=== PATIENT | male | born 1965 | race Caucasian/White ===

== ENCOUNTER 2022-05-13 18:16 | Emergency (ER) | payer BC, MEDICAID, SELFPAY ==
[2022-05-13 18:17] VITALS: BP 121/83; PULSE 84; RESP 14; TEMP 37.1; O2SAT 100; BMI 24.2
--- NOTE | 2022-05-13 18:55 | RAD_ITS ---
STUDY: X-RAY - UNILATERAL RIBS ( RIGHT ) WITH CHEST REASON FOR EXAM: Male, 57 years old. injury TECHNIQUE - RIBS: 4 view(s) of the ribs. TECHNIQUE - CHEST: Single PA view of the chest. COMPARISON: None. FINDINGS - RIBS: Subtle acute nondisplaced fracture the lateral right fifth rib. FINDINGS - CHEST: The lungs are clear and expanded. There is no demonstrated pleural abnormality. Normal size heart. Normal mediastinum and gómez. Normal visualized pulmonary arteries. Normal visualized aortic arch and descending thoracic aorta. Normal visualized thoracic spine. Normal visualized ribs, clavicles, and shoulders. There is no demonstrated abnormality of the visualized soft tissue structures of the upper abdomen. RAD/Ribs Uni Min 3V w/PA Chest IMPRESSION: RIBS: Subtle acute nondisplaced fracture the lateral right fifth rib. CHEST: No pneumothorax or hemothorax. Electronically Signed: Shay Haines MD at 19:08 EDT ,
--- NOTE | 2022-05-13 19:31 | EDS_ITS ---
HPI History of Present Illness Chief Complaint: Other, Pain/Inj Informant: patient Narrative Narrative: 57-year-old male states that he was walking down the sidewalk approximately 1 week ago when he tripped over a elevated aspect of the concrete and landed on his bottle injuring his right ribs. He notes a point very specifically just lateral to his breast that is painful. He is felt a popping sensation. He notes no cough or hemoptysis. She denies any other injuries. PFSH PFSH Medical History no medical history Allergy/AdvReac Type Severity Reaction Status Date / Time No Known Allergies Allergy Verified 05/13/22 18:17 Social History (Updated 05/13/22 @ 19:[address] Rogerio Gonzales, DO) current gender identity: male Smoking Status: Never smoker ROS ROS ED Constitutional Constitutional ED: Denies chills or weight loss Eyes Eyes: Denies change in vision or diplopia ENT ENT ED: Denies ear pain, rhinorrhea or sore throat Cardiovascular Cardiovascular: Reports chest pain; Denies orthopnea, palpitations or racing heartbeat Respiratory/Chest Respiratory/Chest: Denies cough, dyspnea or orthopnea Gastrointestinal Gastrointestinal: Denies abdominal pain, diarrhea, nausea or vomiting Genitourinary Genitourinary ED: Denies dysuria, hematuria or urinary frequency Musculoskeletal Musculoskeletal: Denies arthralgias or myalgias Integumentary Denies abscess or rash Neurologic Neurologic: Denies headache(s) or weakness Psychiatric Psychiatric: Denies anxiety, depression, suicidal ideation or suicidal thoughts Endocrine Endocrinology: Denies polydipsia, polyphagia or polyuria Allergic/Immunologic Allergic/Immunologic ED: Denies mouth swelling, tongue swelling or urticaria EXAM Physical Exam Const Vital Signs: 05/13/22 18:17 05/13/22 18:57 Temperature 98.7 F Temperature Source Temporal Pulse Rate 84 Respiratory Rate 14 Respiratory Effort Normal Non-Labored Respiratory Pattern Normal Blood Pressure 121/83 H Blood Pressure Mean 95 Pulse Ox 100 Oxygen Delivery Method Room Air Positive well nourished and well developed General Appearance ED: well developed HEENT Reports normocephalic, head/scalp atraumatic and moist mucous membranes Eyes PERRL and EOMs intact bilaterally Neck no lymphadenopathy, supple and no JVD Chest Wall Chest Narrative: There is an area of point tenderness just to the right of his right breast that is significantly tender to palpation. I do not appreciate any crepitance. Resp normal respiratory effort and clear to auscultation bilaterally Cardio regular rate, regular rhythm and no murmurs GI normal to inspection, nondistended, normoactive bowel sounds and non-tender Palpation: soft Back/Spine no CVA tenderness and normal ROM Extremity normal to inspection General Extremety ED: Negative for edema General Extremity: Negative for edema Neuro oriented x3 and CN's II-XII intact bilaterally Sensorium / Orientation: alert Motor Exam: strength 5/5 throughout Psych mental status grossly normal Mood & Affect: Negative for depressed or tearful Skin no rashes or lesions noted and no wounds MDM MDM MDM Narrative Medical decision making narrative: My interpretation of the plain films of the ribs is a nondisplaced fracture of the lateral fifth rib. I do not appreciate pulmonary contusion or pneumoh emothorax. Patient declines pain medication. This point he will be discharged home return if worsening or concerns Radiography Diagnostic Testing: Clinical Impression(s) from Imaging Studies Ribs w/Chest X-Ray 05/13/22 18:55 IMPRESSION: RIBS: Subtle acute nondisplaced fracture the lateral right fifth rib. CHEST: No pneumothorax or hemothorax. Electronically Signed: Shay Haines MD at 19:08 EDT , Discharge Plan Triage Chief Complaint: Other, Pain/Inj ED Provider: Rogerio Gonzales Dx/Rx/DC Orders Primary Care Provider: Care Physician,No Primary Referrals: Care Physician,No Primary [Primary Care Provider] -
[2022-05-13 19:40] VITALS: BP 118/69; PULSE 77; RESP 18; O2SAT 100
== END 2022-05-13 19:41 | disposition home or self-care (01) ==
PROVIDERS: Emergency Provider Emergency Medicine; Visit Provider Emergency Medicine
DX: S22.31XA Fracture of one rib, right side, initial encounter for closed fracture (principal); W18.09XA Striking against other object with subsequent fall, initial encounter; Y93.01 Activity, walking, marching and hiking; Y99.8 Other external cause status; Y92.480 Sidewalk as the place of occurrence of the external cause
CPT/HCPCS: 71101; 99282

== ENCOUNTER 2022-06-05 18:00 | Emergency (ER) | payer BC, SELFPAY ==
[2022-06-05 18:12] VITALS: BP 104/73; PULSE 82; RESP 16; TEMP 36.7; O2SAT 99; BMI 22.3
--- NOTE | 2022-06-05 18:45 | RAD_ITS ---
STUDY: X-RAY - RIGHT KNEE REASON FOR EXAM: Male, 57 years old. Fell on ice Sunday morning. Twisted knee. Pain. TECHNIQUE: 4 view(s) of the knee. COMPARISON: None. FINDINGS: Normal visualized distal femur. Normal visualized proximal tibia and fibula. Normal proximal tibiofibular articulation. There is no acute fracture, dislocation or destructive osseous pathology. There is moderate degenerative arthrosis of the medial femorotibial compartment with moderate joint space narrowing. Normal lateral femorotibial compartment. Normal patellofemoral articulation. There is a soft tissue prominence in the suprapatellar region suggesting a small volume joint effusion. There are atherosclerotic calcifications. RAD/Knee 4 or More Views IMPRESSION: 1. Suprapatellar joint effusion without acute fracture or subluxation. 2. Mild arthrosis of the knee. Electronically Signed: Samuel Pinon DO at 18:54 EST Reading Location ID and State: [address] [facility] Tel [phone], Service support ,
[2022-06-05 20:20] VITALS: BP 134/78; PULSE 68; RESP 16; TEMP 36.3; O2SAT 97
--- NOTE | 2022-06-05 20:55 | EDS_ITS ---
HPI History of Present Illness Chief Complaint: Lower Extremity Injury Narrative Narrative: 57-year-old male who denies significant past medical history presents with injury to his right knee that he sustained a day or 2 ago. He states that he was walking and twisted his right knee. He did not fall. He now has pain with weightbearing and leading with his right leg up stairs. It is on both sides of his knee and worse with movement. He denies any chest pain or shortness of breath, no other injury. No overt swelling. PFSH PFSH Allergy/AdvReac Type Severity Reaction Status Date / Time No Known Allergies Allergy Verified 06/05/22 18:12 Social History Smoking Status: Never smoker ROS ROS ED ROS Narrative Constitutional: No fever, no chills. HEENT: No sore throat. No neck pain. No loss of vision. No rhinorrhea. Cardiovascular: No chest pain. No palpitations. No pedal edema. Respiratory: No cough, no shortness of breath. Abdominal: No abdominal pain. No nausea. No vomiting. Genitourinary: No dysuria. No hematuria. Musculoskeletal: No myalgias. Right knee pain worse with weightbearing, flexion extension, and leading right leg upstairs. Neurologic: No headaches. No dizziness. No lightheadedness. Skin: No rash. No change in color. Psychiatric: No depression. No anxiety. EXAM Physical Exam Narrative Exam Narrative: Afebrile. Vital signs noted. HEENT: Normocephalic. Atraumatic. PERRL, EOMI. Neck soft and supple. No point tenderness or step off. Cardiovascular: Regular rate and rhythm. No murmurs, rubs, or gallops appreciated. Respiratory: No tachypnea. Lungs clear to auscultation bilaterally. Gastrointestinal: Abdomen soft, nontender, with normoactive bowel sounds. No rebound or guarding. Neurological: Awake. Alert. Nonfocal, nonlateralizing. Skin: No rash. Normal color. No pallor. Musculoskeletal: No pedal edema. Extension and flexion mechanisms of right knee intact. Able to lift leg off bed without difficulty. Full flexion of right knee limited secondary to pain. Mild tenderness along meniscal joint line. No overt swelling or erythema. Neurovascular intact distally with palpable dorsalis pedis pulse. Negative anterior drawer sign. Const Vital Signs: 06/05/22 18:12 06/05/22 20:20 Temperature 98.1 F 97.4 F L Temperature Source Temporal Temporal Pulse Rate 82 68 Respiratory Rate 16 16 Blood Pressure 104/73 134/78 H Blood Pressure Mean 83 96 Pulse Ox 99 97 Oxygen Delivery Method Room Air Room Air MDM MDM MDM Narrative Medical decision making narrative: X-rays were obtained of the right knee. There is a suprapatellar joint effusion but no evidence of fracture on my interpretation. He does have mild arthritis noted also. At this point in time he was given an Tobias wrap and will take [id number] analgesics as necessary. 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 He will buy an [id number] knee sleeve as needed for support. He will follow-up with his primary care provider or orthopedics in a week to 10 days if his pain does not improve. I feel he can be discharged safely home with follow-up. Return instructions were reviewed. Disposition is discharged home in stable condition. Radiography Diagnostic Testing: Clinical Impression(s) from Imaging Studies Knee X-Ray 06/05/22 18:45 IMPRESSION: 1. Suprapatellar joint effusion without acute fracture or subluxation. 2. Mild arthrosis of the knee. Electronically Signed: Samuel Pinon at 18:54 EST Reading Location ID and State: [address] [place] [address] Tel [phone], Service support , Discharge Plan Triage Chief Complaint: Lower Extremity Injury ED Provider: Rocco Simmons Dx/Rx/DC Orders Clinical Impression: Right knee sprain, Suprapatellar effusion of knee Instructions: ED Knee Effusion, ED Knee Sprain Stand Alone Forms: ED Work / School Excuse Primary Care Provider: Care Physician,No Primary Referrals: London Don MD [Med Staff - Active Staff] - 1 Week if not improving Care Physician,No Primary [Primary Care Provider] - Disposition Disposition: Home, Self Care
[2022-06-05 21:02] VITALS: BP 132/78; PULSE 78; RESP 16; TEMP 36.6; O2SAT 99
== END 2022-06-05 21:03 | disposition home or self-care (01) ==
PROVIDERS: Emergency Provider Emergency Medicine; Visit Provider Emergency Medicine
DX: S83.91XA Sprain of unspecified site of right knee, initial encounter (principal); Y99.8 Other external cause status; X50.1XXA Overexertion from prolonged static or awkward postures, initial encounter; M25.461 Effusion, right knee
CPT/HCPCS: 73564; 99282

== ENCOUNTER 2023-06-23 12:50 | Inpatient (IN) | payer MEDICAID, SELFPAY ==
[2023-06-23] VITALS (10 sets, daily range): BP systolic 87–106; BP diastolic 63–80; PULSE 65–101; RESP 12–22; TEMP 36.2–37.2; O2SAT 94–100; BMI 25.7; BMI 18.6
--- NOTE | 2023-06-23 12:59 | EKG12_ITS ---
Test Reason : Blood Pressure : / mmHG Vent. Rate : 093 BPM Atrial Rate : 093 BPM P-R Int : 130 ms QRS Dur : 084 ms QT Int : 310 ms P-R-T Axes : 068 054 062 degrees QTc Int : 385 ms Normal sinus rhythm Nonspecific T wave abnormality Abnormal ECG Confirmed by JOHNNA TORIBIO, RADHA ([id number]), acquisitions editor LEELA SHEPARD ([id number]) on 06/26/2023 6:20:05 AM Referred By: Confirmed By:ROWENA OROPEZA MD
--- NOTE | 2023-06-23 12:59 | RAD_ITS ---
STUDY: X-RAY CHEST REASON FOR EXAM: Male, 58 years old. Cough, shortness of breath TECHNIQUE: Single AP portable view of the chest. COMPARISON: 05/13/2022 FINDINGS: EKG leads overlie the chest Lungs are expanded, right lung is clear there is superimposed infiltrate in the lingula with associated effusion. Follow-up recommended to ensure resolution Normal size heart. Normal mediastinum and gómez. Normal visualized pulmonary arteries. Normal visualized aortic arch and descending thoracic aorta. There are diffuse degenerative changes of the visualized thoracic spine. Normal visualized ribs, clavicles, and shoulders. There is no demonstrated abnormality of the visualized soft tissue structures of the upper abdomen. RAD/Chest 1 View (Portable) IMPRESSION: Lingular infiltrate with likely atelectasis and effusion. Follow-up recommended to ensure complete resolution Electronically Signed: Darrian Dockery MD at 14:18 EST ,
--- NOTE | 2023-06-23 13:00 | EX.ED.DYSGE1 ---
HPI History of Present Illness Chief Complaint: Shortness of Breath Detail of Chief Complaint: Shortness of breath, cough and low blood pressure Informant: patient Onset/Context/Timing Onset: Yesterday Context: Gradual Onset Timing: Continuous Quality: Dyspnea, dyspnea on exertion and lightheadedness Location: Respiratory and cardiovascular Current Severity: Mild Maximum Severity: Moderate Worsened by: Lightheadedness is worse when he stands shortness of breath is worse with a Relieved by: Nothing Associated Symptoms Associated Symptoms: Productive cough of white-colored sputum Narrative Narrative: Patient is a 58-year-old male with stage IV lung cancer who is seen by Dr. Peterson at [facility]. He received chemo on Sunday. He complains of chills. He denies fever. He does have a cough productive of white-colored sputum. He complains of shortness of breath and lightheadedness. States his blood pressure is normally 110s to 120 systolic. He denies nausea or vomiting or diarrhea. His stool is dark but not black or sticky. He denies dysuria, frequency, urgency or hematuria. He denies change in color of his urine. Patient complains of generalized weakness. He denies paresthesia or anesthesia. He denies problems with balance. He denies headache. He denies visual disturbance. Prior similar symptoms: No Recent Illness/Hospitalization: Yes (Chemotherapy on Sunday) [facility] Medical History (Updated 06/23/23 @ 15:[address] Joselito Mathias MD) Stage 4 lung cancer Allergy/AdvReac Type Severity Reaction Status Date / Time No Known Allergies Allergy Verified 06/23/23 12:51 Family History (Updated 06/23/23 @ 16:[address] Isacc Barrientos MD) Other Cancer Surgical History no surgical history Social History (Updated 06/23/23 @ 13:[address] Joselito Mathias MD) household members: none Smoking Status: Current every day smoker tobacco type: cigarettes substance use type: does not use ROS ROS ED Constitutional Constitutional ED: Reports chills and weight loss; Denies fever(s), subjective or sweats Eyes Eyes: Denies blurry vision, change in vision or diplopia ENT ENT ED: Denies ear pain, rhinorrhea or sore throat Cardiovascular Cardiovascular: Denies chest pain, orthopnea, palpitations, paroxysmal nocturnal dyspnea or racing heartbeat Respiratory/Chest Respiratory/Chest: Reports cough, dyspnea, dyspnea on exertion and sputum; Denies orthopnea or paroxysmal nocturnal dyspnea Gastrointestinal Gastrointestinal: Denies abdominal pain, constipation, diarrhea, nausea or vomiting Genitourinary Genitourinary ED: Denies dysuria, hematuria or urinary frequency Musculoskeletal Musculoskeletal: Denies arthralgias, back pain, myalgias or neck pain Integumentary Denies rash Neurologic Neurologic: Reports weakness; Denies headache(s) or paresthesias Endocrine Endocrinology: Reports cold intolerance; Denies heat intolerance Hematologic/Lymphatic Hematologic/Lymphatic: Reports systems reviewed and no addt'l complaints, except as documented EXAM Physical Exam Const Vital Signs: 06/23/23 12:51 06/23/23 13:41 06/23/23 13:43 Temperature 99 F 98.3 F Temperature Source Temporal Oral Pulse Rate 101 H 77 Respiratory Rate 22 H 12 Respiratory Effort Respiratory Depth Respiratory Pattern Blood Pressure 87/63 L 95/66 Blood Pressure Mean 71 75 Pulse Ox 96 97 100 Oxygen Delivery Method Room Air Room Air Room Air 06/23/23 13:50 06/23/23 14:00 06/23/23 14:50 Temperature 98.3 F Temperature Source Oral Pulse Rate 75 84 Respiratory Rate 20 H 16 Respiratory Effort Short of Breath Respiratory Depth Normal Respiratory Pattern Normal Blood Pressure 99/68 106/80 Blood Pressure Mean 78 88 Pulse Ox 98 99 Oxygen Delivery Method Room Air Room Air Room Air 06/23/23 15:27 06/23/23 15:27 Temperature 97.2 F L Temperature Source Temporal Pulse Rate 70 72 Respiratory Rate 12 12 Respiratory Effort Respiratory Depth Respiratory Pattern Blood Pressure 100/75 96/75 Blood Pressure Mean 83 82 Pulse Ox 98 98 Oxygen Delivery Method Room Air Room Air Positive well developed and cachectic Constitutional Narrative: Patient does not appear well. He is not toxic in appearance. General Appearance ED: well developed and cachectic; Negative for cyanotic, diaphoretic, NAD or pallor Nutritional Appearance: cachectic HEENT Reports moist mucous membranes HEENT Narrative: Posterior pharynx out erythema or exudate. Nares patent without discharge. Ears are normal. Eyes PERRL and EOMs intact bilaterally Eyes Narrative: Sclera is either icteric or muddy. General Eye ED: Yes pale conjunctiva and scleral icterus Neck no lymphadenopathy, supple and no JVD Chest Wall inspection of chest normal and palpation of chest normal Resp normal respiratory effort and No clear to auscultation bilaterally Auscultation: rales bilateral base, wheezes expiratory wheezes, scattered wheezes and throughout and diminished lung sounds left lower Cardio regular rhythm, S1 normal heart sound, S2 normal heart sound and no murmurs Rate: tachycardic and other GI normal to inspection, nondistended, normoactive bowel sounds, non-tender, non-distended and no masses; Negative for hepatosplenomegaly Back/Spine no CVA tenderness Back/Spine Narrative: Patient has a lipoma the middle of his back. There is no tenderness to palpation. Extremity normal to inspection Neuro oriented x3, CN's II-XII intact bilaterally and no sensory deficits noted Sensorium / Orientation: alert Psych mental status grossly normal Skin no rashes or lesions noted, no wounds and No skin turgor normal Skin Narrative: Question of jaundice. General Skin Exam: Negative for elasticity normal or pallor Sepsis Attestation Date exam was performed: 06/23/23 Time exam was performed: 17:11 Possible Source of Sepsis: Pulmonary Sepsis Organ Dysfunction Criteria Present: SBP < 90 mmHg or MAP < 65 mmHg Fluid Resuscitation Fluid resuscitation indicated?: Yes Fluid Resuscitation ordered: Lesser volume fluid bolus ordered Amount of fluid ordered: 2,000 Reason for lesser fluid bolus:: BP Responded to a lesser volume MDM MDM MDM Narrative Medical decision making narrative: Patient may be hypotensive for multiple reasons. Need to rule out hypovolemia, GI bleed, infection. Chest x-ray is obtained because of abnormal oscillatory findings and rule out pneumonia. CBC to assess white count differential as well as H&H since he appears pale. Comprehensive metabolic panel to assess electrolytes, renal function and bilirubin since he appears to be jaundiced. Chest x-ray reveals infiltrate which appears to be in the lingula lobe. There is also some chronic changes small effusion noted. Patient's blood pressure did respond to second liter of saline. Will ambulate patient to determine if he desaturates. Since he has a normal white count with no bandemia no evidence of endorgan dysfunction and believe his hypotension was due to hypovolemia will discharge to home if he does not desaturate when ambulated. History & Record Review Additional record(s) reviewed:: Prior outpatient record (Laboratory studies and office visit from [facility] was reviewed. Patient's medication list was given to the nurse.) and No prior records (There are no records at [facility] for review. Will access [employer].) Lab Data Attestation: I reviewed the patient's lab results. Lab results narrative: Patient has chronic anemia and is at baseline. Patient's comprehensive metabolic panel is unremarkable and at baseline. UA does not reveal evidence of infection. Labs: Laboratory Results - last 24 hr 06/23/23 06/23/23 13:10 14:45 WBC 6.3 RBC 2.70 L Hgb 8.7 L Hct 26.1 L MCV 96.7 H MCH 32.2 H MCHC 33.3 RDW Std Deviation 77.6 H RDW Coeff of Fred 24.0 H Plt Count 365 MPV 8.7 Immature Gran % (Auto) 0.300 Neut % (Auto) 75.3 H Lymph % (Auto) 22.2 [place] % (Auto) 1.3 Eos % (Auto) 0.6 Baso % (Auto) 0.3 Absolute Neuts (auto) 4.8 Absolute Lymphs (auto) 1.41 Nucleated RBC % 0 Anisocytosis 2+ PT 12.5 INR 0.9 APTT 31.7 Sodium 132 L Potassium 4.0 Chloride 99 Carbon Dioxide 29.0 Anion Gap 4 L BUN 15 Creatinine 1.08 Estim Creat Clear Calc 55.15 Est GFR (MDRD) Af Amer 90 Est GFR (MDRD) Non-Af 75 BUN/Creatinine Ratio 13.9 Glucose 132 H Lactic Acid 1.3 Calcium 8.9 Total Bilirubin 0.50 AST 19 ALT 15 L Alkaline Phosphatase 89 Total Protein 7.7 Albumin 3.6 Globulin 4.1 Albumin/Globulin Ratio 0.9 Urine Color Yellow Urine Clarity Clear Urine pH 7.0 Ur Specific [place] 1.010 Urine Protein 30 H Urine Glucose (UA) Normal Urine Ketones Negative Urine Occult Blood Negative Urine Nitrite Negative Urine Bilirubin Negative Urine Urobilinogen 1 H Ur Leukocyte Esterase 25 H Urine RBC 0 SEEN Urine WBC 0-5 SEEN Ur Squamous Epith Cells 0 SEEN Urine Bacteria 0 SEEN Urine Mucus 0 SEEN Radiography Chest X-Ray - ED: Read by ED Physician (2 view chest x-ray reveals) Diagnostic Testing: Clinical Impression(s) from Imaging Studies Chest X-Ray 06/23/23 12:59 IMPRESSION: Lingular infiltrate with likely atelectasis and effusion. Follow-up recommended to ensure complete resolution Electronically Signed: Darrian Dockery MD at 14:18 EST , EKG Initial EKG: Attestation: I personally reviewed and interpreted this EKG as follows: Interpretation: Sinus Rhythm (Rate is 93. There is artifact that the computer is reading is nonseptic changes. IL interval is 130 ms. QRS duration 84 ms. QT duration 310 ms. [place] is normal.) Prior: No Prior Management Discussion w/another healthcare provider: Hospitalist (Dr. Isacc Barrientos was paged for admission) Treatment and Re-Evaluation :: Blood pressure at 1525 was 87/69. A second liter normal saline was ordered. Antibiotics were ordered as well since patient has infiltrate on his chest x-ray. Critical Care Time Critical Care Time: Yes Critical care time (excluding procedures): 30-74 minutes (31), Including time spent: (History, physical, documentation, obtaining records from outside facility, independent interpretation of laboratory results and treatment for pneumonia and hypotension), Discussing w/Patient &/or Family/Forensic Toxicologist, Discussing w/Consultants and Arranging Admission or Transfer Discharge Plan Dx/Rx/DC Orders Clinical Impression: Lingular pneumonia, Metastatic primary lung cancer, COPD (chronic obstructive pulmonary disease), Acute hypotension Disposition Disposition: Acute Care [facility]
--- NOTE | 2023-06-23 13:02 | ED.RN ---
NO OLD EKG
[2023-06-23 13:21] LABS: Absolute Lymphocyte Count 1.41 X10^3/uL (0.83-4.51); Absolute Neutrophil Count 4.8 X10^3/uL (2.0-7.7); Basophil# 0.02 X10^3/uL; Basophil% 0.3 % (0-1); Eosinophil# 0.04 X10^3/uL; Eosinophils% 0.6 % (0-5); Hematocrit 26.1 % (40-54); Hemoglobin 8.7 g/dL (13.0-16.5); Lymphocyte # 1.41 X10^3/ul (0.83-4.51); Lymphocyte % 22.2 % (19-41); Mean Corp Hgb Conc 33.3 g/dL (32-36); Mean Corpuscular Hgb 32.2 pg (27.0-32.0); Mean Corpuscular Volume 96.7 fL (80-94); Mean Platelet Vol. 8.7 fl (6.2-12.0); Monocyte# 0.08 X10^3/uL; Monocyte% 1.3 % (0-10); NRBC Flagged by Analyzer 0 % (0-5); Neutrophil # 4.77 X10^3/uL (2.7-7.7); Neutrophil % 75.3 % (47-70); POSITIVE MORPHOLOGY YES; Platelet Count 365 K/mm3 (150-450); RBC Distribution Width SD 77.6 fl (35.1-43.9); White Blood Count 6.3 K/mm3 (4.4-11.0)
[2023-06-23 13:22] LABS: Differential Indicated SCAN CRITERIA MET
[2023-06-23] MEDS: 0.9% Normal Saline (1000mL) 1,000 ML 999 ML IV (13:29)
[2023-06-23 13:32] LABS: International Normalized Ratio 0.9; Partial Thromboplast Time 31.7 Seconds (24.1-36.2); Prothrombin Time (Protime)PT. 12.5 SECONDS (11.7-14.9)
[2023-06-23 13:38] LABS: ALB/GLOB Ratio 0.9 RATIO (0.9-2.4); AST(SGOT) 19 U/L (15-37); Alanine Aminotransfer ALT/SGPT 15 U/L (16-61); Albumin, Serum 3.6 g/dL (3.2-5.0); Alkaline Phosphatase 89 U/L (45-117); Anion Gap 4 (5-15); BUN 15 mg/dL (7-18); BUN/Creat Ratio 13.9 RATIO (10-20); Calcium,Total 8.9 mg/dL (8.5-10.1); Chloride 99 mmol/L (98-107); Creatinine, Serum 1.08 mg/dL (0.70-1.30); EST Glomerular Filtration Rate 75 mL/min (>60); Est Glom Filt Rate - Afr Amer 90 mL/min (>60); Estimated Creatinine Clearance 55.15 ml/min; Globulin 4.1 g/dL (2.2-4.2); Glucose 132 mg/dL (74-106); Protein, Total 7.7 g/dL (6.4-8.2); Sodium Level 132 mmol/L (136-145)
[2023-06-23 13:39] LABS: Lactic Acid 1.3 mmol/L (0.4-1.9)
[2023-06-23 13:44] LABS: Anisocytosis 2+
[2023-06-23 14:50] LABS: Bacteria 0 SEEN /hpf (None Seen); Mucous, Urine 0 SEEN /hpf (<or=2+); Red Blood Cells-Urine 0 SEEN /hpf (0-5); Squamous Epithelial Cells - UA 0 SEEN /hpf (0-5)
[2023-06-23 14:52] LABS: Color, Urine Yellow (Yellow); Glucose, Dipstick Normal (Normal); Ketone-Dipstick Negative (Negative); Leukocyte Esterase-Dipstick 25 /ul (Negative); Nitrite-Dipstick Negative (Negative); Occult Blood-Urine Negative /ul (Negative); Protein-Dipstick 30 mg/dl (Negative); Urine Bilirubin Dipstick Negative (Negative); Urine Clarity Clear (Clear); Urine Urobilinogen 1 mg/dl (Normal)
[2023-06-23 14:59] LABS: White Blood Cells 0-5 SEEN /hpf (0-5)
[2023-06-23] MEDS: 0.9% Normal Saline (1000mL) 1,000 ML 1000 ML IV (15:47)
[2023-06-23] MEDS: Piperacil/Tazobactam 4.5 GM in 0.9% Normal Saline (100mL MB+) 100 ML IV (15:56)
--- NOTE | 2023-06-23 16:28 | PCM.HP.STD ---
HPI - General General Date of Admission: 06/23/23 HPI Narrative MINERVA EVANGELISTA, is a 58 M who presents to the hospital with mild hypotension in the setting of left lingular pneumonia. He was an otherwise healthy gentleman however does have stage IV lung cancer. His medications are an albuterol inhaler as well as methadone and p.o. morphine. He is getting chemotherapy at [facility] and was recently admitted for several days within the last 3 months due to chemo side effect. He presents to the hospital with increased shortness of breath though is not requiring any oxygen. Chest x-ray demonstrated a lingula pneumonia and initial systolic blood pressure on presentation was 87 with a MAP of 71, he is never had a MAP below 65 while here however he will initially respond after a 1 L fluid bolus and then his pressures will soften again so the ED physician requested admission. He states that he was tested for COVID last week as well as flu and this was negative. [facility] Medical History (Updated 06/23/23 @ 15:[address] Joselito Mathias MD) Stage 4 lung cancer Home Medications albuterol sulfate 90 mcg/actuation aerosol inhaler (ProAir HFA) 2 inh inhalation Q4H PRN shortness of breath or wheezing 06/23/23 [History Last Taken Unknown] dexamethasone 4 mg tablet 8 mg PO DAILY 06/23/23 [History Last Taken Unknown] folic acid 1 mg tablet 1,000 mcg PO DAILY 06/23/23 [History Last Taken Unknown] gabapentin 300 mg capsule 300 mg PO TID 06/23/23 [History Last Taken Unknown] ipratropium 0.5 mg-albuterol 3 mg (2.5 mg base)/3 mL nebulization soln 3 ml continuous nebulization Q4H PRN shortness of breath or wheezing 06/23/23 [History Last Taken Unknown] levothyroxine 75 mcg tablet mcg 06/23/23 [History Last Taken Unknown] levothyroxine 88 mcg tablet 88 mcg PO DAILY 06/23/23 [History Last Taken Unknown] mirtazapine 7.5 mg tablet 7.5 mg PO .hs 06/23/23 [History Last Taken Unknown] morphine 15 mg immediate release tablet 15 mg PO Q4H PRN pain (scale score 4-6) 06/23/23 [History Last Taken Unknown] tiotropium 2.5 mcg-olodaterol 2.5 mcg/actuation mist for inhalation (Stiolto Respimat) 2 inh inhalation DAILY 06/23/23 [History Last Taken Unknown] triamcinolone acetonide 0.5 % topical ointment 1 applic topical DAILY 06/23/23 [History Last Taken Unknown] Allergy/AdvReac Type Severity Reaction Status Date / Time No Known Allergies Allergy Verified 06/23/23 12:51 Family History (Updated 06/23/23 @ 16:[address] Isacc Barrientos MD) Other Cancer Surgical History no surgical history no surgical history Social History (Updated 06/23/23 @ 13:[address] Joselito Mathias MD) household members: none Smoking Status: Current every day smoker tobacco type: cigarettes substance use type: does not use ROS Constitutional Constitutional: Denies chills, fatigue, fever(s) or malaise Eyes Eyes: Denies blurry vision ENT HEENT: Denies headache(s) or nasal discharge Cardiovascular Cardiovascular: Denies chest pain, dyspnea on exertion or syncope Respiratory/Chest Respiratory/Chest: Reports cough, shortness of breath at rest and shortness of breath with exertion Gastrointestinal Gastrointestinal: Denies constipation, diarrhea, nausea or vomiting Genitourinary Genitourinary: Denies dysuria Neurologic Neurologic: Denies focal weakness, numbness or tremor(s) Psychiatric Psychiatric: Denies anxiety or depression Vital Signs Vital Signs Vital Signs: 06/23/23 12:51 06/23/23 13:41 06/23/23 13:43 Temperature 99 F 98.3 F Temperature Source Temporal Oral Pulse Rate 101 H 77 Respiratory Rate 22 H 12 Respiratory Effort Respiratory Depth Respiratory Pattern Blood Pressure 87/63 L 95/66 Blood Pressure Mean 71 75 Pulse Ox 96 97 100 Oxygen Delivery Method Room Air Room Air Room Air 06/23/23 13:50 06/23/23 14:00 06/23/23 14:50 Temperature 98.3 F Temperature Source Oral Pulse Rate 75 84 Respiratory Rate 20 H 16 Respiratory Effort Short of Breath Respiratory Depth Normal Respiratory Pattern Normal Blood Pressure 99/68 106/80 Blood Pressure Mean 78 88 Pulse Ox 98 99 Oxygen Delivery Method Room Air Room Air Room Air 06/23/23 15:27 06/23/23 15:27 Temperature 97.2 F L Temperature Source Temporal Pulse Rate 70 72 Respiratory Rate 12 12 Respiratory Effort Respiratory Depth Respiratory Pattern Blood Pressure 100/75 96/75 Blood Pressure Mean 83 82 Pulse Ox 98 98 Oxygen Delivery Method Room Air Room Air Weight Weight: 136 lb 3.931 oz Body Mass Index (BMI) 25.7 Physical Exam Narrative General: Alert, Oriented x3, Cooperative, No apparent distress HEENT: Atraumatic, PERRLA, EOMI, Normocephalic Oral: Moist Mucosa Neck: Supple, No JVD Lungs: Diminished, Normal air movement, No rhonchi, wheeze, No rales Cardiovascular: Regular rate, Regular Rhythm, Normal S1, Normal S2, No murmurs Abdomen: Soft, Non Tender, Non-Distended, No Hepato-splenomegaly Extremities: No edema, Capillary Refill Less than 3 Seconds Skin: No rashes, No breakdown Musculoskeletal: No Tenderness to Palpation of Joints or Extremities Neurological: Cranial nerves II-XII grossly intact, Motor Exam 5/5 strength throughout, Sensory exam intact to light touch and pain Psych/Mental Status: Normal Affect, Appropriate Results Lab / Micro Data 06/23/23 13:10 06/23/23 13:10 Labs: Laboratory Results - last 24 hr 06/23/23 13:10: WBC 6.3, RBC 2.70 L, Hgb 8.7 L, Hct 26.1 L, MCV 96.7 H, MCH 32.2 H, MCHC 33.3, RDW Std Deviation 77.6 H, RDW Coeff of Fred 24.0 H, Plt Count 365, MPV 8.7, Immature Gran % (Auto) 0.300, Neut % (Auto) 75.3 H, Lymph % (Auto) 22.2, [place] % (Auto) 1.3, Eos % (Auto) 0.6, Baso % (Auto) 0.3, Absolute Neuts (auto) 4.8, Absolute Lymphs (auto) 1.41, Nucleated RBC % 0, Anisocytosis 2+, PT 12.5, INR 0.9, APTT 31.7, Sodium 132 L, Potassium 4.0, Chloride 99, Carbon Dioxide 29.0, Anion Gap 4 L, BUN 15, Creatinine 1.08, Estim Creat Clear Calc 55.15, Est GFR (MDRD) Af Amer 90, Est GFR (MDRD) Non-Af 75, BUN/Creatinine Ratio 13.9, Glucose 132 H, Lactic Acid 1.3, Calcium 8.9, Total Bilirubin 0.50, AST 19, ALT 15 L, Alkaline Phosphatase 89, Total Protein 7.7, Albumin 3.6, Globulin 4.1, Albumin/Globulin Ratio 0.9 06/23/23 14:45: Urine Color Yellow, Urine Clarity Clear, Urine pH 7.0, Ur Specific [place] 1.010, Urine Protein 30 H, Urine Glucose (UA) Normal, Urine Ketones Negative, Urine Occult Blood Negative, Urine Nitrite Negative, Urine Bilirubin Negative, Urine Urobilinogen 1 H, Ur Leukocyte Esterase 25 H, Urine RBC 0 SEEN, Urine WBC 0-5 SEEN, Ur Squamous Epith Cells 0 SEEN, Urine Bacteria 0 SEEN, Urine Mucus 0 SEEN Imagaing Radiology Impression Chest X-Ray 06/23/23 12:59 IMPRESSION: Lingular infiltrate with likely atelectasis and effusion. Follow-up recommended to ensure complete resolution Electronically Signed: Darrian Dockery MD at 14:18 EST Reading Location ID and State: [address] [place] [address] , Service support , Assessment & Plan Assessment/Plan (1) Lingular pneumonia: PLAN: Plan 1. Lingular pneumonia with hypotension in the absence of sepsis ? Given his recent hospitalization for his chemo side effect, will continue with Vanco and Zosyn ? Legionella and strep antigen pending ? Will obtain a sputum culture ? Will continue with his home albuterol inhaler ? Will continue with IV fluids 2. Stage IV metastatic lung cancer/COPD ? He is currently on his first cycle of chemotherapy he has follow-up in July to see if there is a response and to continue with chemotherapy ? I had a 20-minute discussion with him on advance care planning including CODE STATUS and palliative care. He states that he is currently on palliative care and is receiving methadone 10 mg p.o. twice daily as well as morphine 15 mg p.o. every 6 hours as needed which we will continue here in the hospital ? Continue with his home albuterol 3. Hypothyroidism ? Stable ? Continue with Synthroid 4. Anxiety/depression ? Stable ? Continue with Remeron DVT: Lovenox 75 minutes was spent on direct patient care, including documentation as well as chart review and collaboration with colleagues Charges/Coding Visit Charges Inpatient E&M: 15595 Init Hosp L3 Procedures Hospitalists Procedures: 36290 Advncd Care Plan 30 Min
[2023-06-23] MEDS: Vancomycin HCl 1,500 MG in 0.9% Normal Saline (500mL Bag) 500 ML 250 MG IV (16:59)
--- NOTE | 2023-06-23 18:17 | PCM.RX.CS ---
Consult Antibiotic Management Pharmacy has been consulted to manage selected antiobiotic: Vancomycin Type of Intervention Type of Consult: New start Suspected Infection Suspected Infection: Pneumonia Prior Doses of Antibiotics Prior Doses of Antibiotics Received/Current Regimen: Vancomycin 1500 mg IV given 06/23/23 @ 7538, patient is also on pipericillin/tazobactam 3.375 grams Q8H Labs Labs: Sodium 132 mmol/L (136-145) L 06/23/23 13:10 Potassium 4.0 mmol/L (3.5-5.1) 06/23/23 13:10 Chloride 99 mmol/L (98-107) 06/23/23 13:10 Carbon Dioxide 29.0 mmol/L (21.0-32.0) 06/23/23 13:10 Anion Gap 4 (5-15) L 06/23/23 13:10 BUN 15 mg/dL (7-18) 06/23/23 13:10 Creatinine 1.08 mg/dL (0.70-1.30) 06/23/23 13:10 Est GFR (MDRD) Af Amer 90 mL/min (>60) 06/23/23 13:10 Est GFR (MDRD) Non-Af 75 mL/min (>60) 06/23/23 13:10 BUN/Creatinine Ratio 13.9 RATIO (10-20) 06/23/23 13:10 Glucose 132 mg/dL (74-106) H 06/23/23 13:10 Dosing Weight Weight used for dosin.8 kg Estimated Creatinine Clearance Estimated Creatinine Clearance: ~55 Goal Trough Goal Trough: 15-20 mcg/mL Pharmacy Plan for Drug Dosing Pharmacy Plan for Drug Dosing: Vancomycin 1500 mg IV x 1, followed by 500 mg IV Q12H based on weight and renal function, trough prior to the 4th total dose. Pharmacy Service will continue to monitor and adjust dosing as required. Follow-Up Labs Follow-Up Labs: Trough: Vancomycin Date/Time Labs Ordered Labs to be done on [date and time ordered]: 06/25/23 @ 7695
[2023-06-23] MEDS: Ensure Plus High Protein 120 ML LIQUID PO (18:23)
[2023-06-23] MEDS: 0.9% Normal Saline (1000mL) 1,000 ML 125 ML IV (18:23)
[2023-06-23] MEDS: Piperacil/Tazobactam 3.375 GM in 0.9% Normal Saline (50mL MB+) 50 ML IV (21:57)
[2023-06-23] MEDS: Methadone 10 MG Tablet PO (21:57)
[2023-06-24] VITALS (15 sets, daily range): BP systolic 92–114; BP diastolic 52–87; PULSE 62–75; RESP 16–18; TEMP 36.2–36.8; O2SAT 96–99
[2023-06-24] MEDS: 0.9% Normal Saline (1000mL) 1,000 ML 125 ML IV ×2 (01:37→10:36)
[2023-06-24] MEDS: Vancomycin IV 500 MG/100 ML BAG 100 MG IV (04:26)
[2023-06-24] MEDS: Piperacil/Tazobactam 3.375 GM in 0.9% Normal Saline (50mL MB+) 50 ML IV ×3 (05:58→20:59)
[2023-06-24 07:24] LABS: Absolute Lymphocyte Count 1.19 X10^3/uL (0.83-4.51); Absolute Neutrophil Count 3.1 X10^3/uL (2.0-7.7); Basophil# 0.02 X10^3/uL; Basophil% 0.5 % (0-1); Eosinophil# 0.02 X10^3/uL; Eosinophils% 0.5 % (0-5); Hematocrit 20.1 % (40-54); Hemoglobin 6.7 g/dL (13.0-16.5); Lymphocyte # 1.19 X10^3/ul (0.83-4.51); Lymphocyte % 27.2 % (19-41); Mean Corp Hgb Conc 33.3 g/dL (32-36); Mean Platelet Vol. 9.1 fl (6.2-12.0); Monocyte# 0.07 X10^3/uL; Monocyte% 1.6 % (0-10); NRBC Flagged by Analyzer 0 % (0-5); Neutrophil # 3.05 X10^3/uL (2.7-7.7); Neutrophil % 69.7 % (47-70); POSITIVE MORPHOLOGY YES; Platelet Count 298 K/mm3 (150-450); RBC Distribution Width CV 23.8 % (11.6-14.6); RBC Distribution Width SD 80.3 fl (35.1-43.9); Red Blood Count 2.03 M/mm3 (4.6-6.2); White Blood Count 4.4 K/mm3 (4.4-11.0)
[2023-06-24 07:27] LABS: Differential Indicated SCAN CRITERIA MET
[2023-06-24 07:50] LABS: Anisocytosis 2+; Hypochromasia 1+
[2023-06-24 07:52] LABS: Anion Gap 2 (5-15); BUN 10 mg/dL (7-18); BUN/Creat Ratio 11.5 RATIO (10-20); Chloride 105 mmol/L (98-107); Creatinine, Serum 0.87 mg/dL (0.70-1.30); EST Glomerular Filtration Rate 96 mL/min (>60); Est Glom Filt Rate - Afr Amer 116 mL/min (>60); Estimated Creatinine Clearance 79.59 ml/min; Glucose 91 mg/dL (74-106); Potassium 4.1 mmol/L (3.5-5.1); Sodium Level 133 mmol/L (136-145)
[2023-06-24] MEDS: Methadone 10 MG Tablet PO ×2 (10:36→21:00)
[2023-06-24] MEDS: 0.9% Saline Lock 10 ML Syringe IV ×3 (10:36→17:35)
[2023-06-24 11:28] LABS: Ferritin 1020 ng/mL (26-388); Iron 223 ug/dL (65-175); Iron Binding Capacity,Total 234 ug/dL (250-450); PERCENT IRON SATURATION 95.3 % (15.0-55.0)
--- NOTE | 2023-06-24 11:31 | PCM.PN.HOSP ---
Reason for Visit Reason for Visit: Diagnoses Pneumonia, unspecified organism (06/23/23) Subjective Subjective He hadSeen and examined today, he is currently on room air his hemoglobin today was low at 6.7, I have ordered 2 units of packed red blood cells. Iron studies do not show an iron deficiency anemia. Objective Data Objective Data Vital Signs: Vital Signs Temp Pulse Resp BP Pulse Ox O2 Del Method 97.6 F L 68 17 105/83 H 99 Room Air 06/24/23 09:44 06/24/23 09:44 06/24/23 09:44 06/24/23 09:44 06/24/23 09:44 06/24/23 09:45 Oxygen Delivery Method Room Air Weight: 60.8 kg Body Mass Index (BMI) 18.6 Intake & Output: Intake and Output for Last 24 Hours 06/22/23 06/23/23 06/24/23 23:59 23:59 23:59 Intake Total 2830 / 2830 2104.17 / 2104.17 Output Total 600 / 600 Balance 2830 / 2830 1504.17 / 1504.17 Lab / Micro Data 06/24/23 06:07 06/24/23 06:07 Labs: Laboratory Results - last 24 hr 06/23/23 13:10: WBC 6.3, RBC 2.70 L, Hgb 8.7 L, Hct 26.1 L, MCV 96.7 H, MCH 32.2 H, MCHC 33.3, RDW Std Deviation 77.6 H, RDW Coeff of Fred 24.0 H, Plt Count 365, MPV 8.7, Immature Gran % (Auto) 0.300, Neut % (Auto) 75.3 H, Lymph % (Auto) 22.2, [place] % (Auto) 1.3, Eos % (Auto) 0.6, Baso % (Auto) 0.3, Absolute Neuts (auto) 4.8, Absolute Lymphs (auto) 1.41, Nucleated RBC % 0, Anisocytosis 2+, PT 12.5, INR 0.9, APTT 31.7, Sodium 132 L, Potassium 4.0, Chloride 99, Carbon Dioxide 29.0, Anion Gap 4 L, BUN 15, Creatinine 1.08, Estim Creat Clear Calc 55.15, Est GFR (MDRD) Af Amer 90, Est GFR (MDRD) Non-Af 75, BUN/Creatinine Ratio 13.9, Glucose 132 H, Lactic Acid 1.3, Calcium 8.9, Total Bilirubin 0.50, AST 19, ALT 15 L, Alkaline Phosphatase 89, Total Protein 7.7, Albumin 3.6, Globulin 4.1, Albumin/Globulin Ratio 0.9 06/23/23 14:45: Urine Color Yellow, Urine Clarity Clear, Urine pH 7.0, Ur Specific [place] 1.010, Urine Protein 30 H, Urine Glucose (UA) Normal, Urine Ketones Negative, Urine Occult Blood Negative, Urine Nitrite Negative, Urine Bilirubin Negative, Urine Urobilinogen 1 H, Ur Leukocyte Esterase 25 H, Urine RBC 0 SEEN, Urine WBC 0-5 SEEN, Ur Squamous Epith Cells 0 SEEN, Urine Bacteria 0 SEEN, Urine Mucus 0 SEEN 06/24/23 06:07: WBC 4.4, RBC 2.03 L, Hgb 6.7 L, Hct 20.1 L, MCV 99.0 H, MCH 33.0 H, MCHC 33.3, RDW Std Deviation 80.3 H, RDW Coeff of Fred 23.8 H, Plt Count 298, MPV 9.1, Immature Gran % (Auto) 0.500, Neut % (Auto) 69.7, Lymph % (Auto) 27.2, [place] % (Auto) 1.6, Eos % (Auto) 0.5, Baso % (Auto) 0.5, Absolute Neuts (auto) 3.1, Absolute Lymphs (auto) 1.19, Nucleated RBC % 0, Hypochromasia 1+, Anisocytosis 2+, Sodium 133 L, Potassium 4.1, Chloride 105, Carbon Dioxide 26.0, Anion Gap 2 L, BUN 10, Creatinine 0.87, Estim Creat Clear Calc 79.59, Est GFR (MDRD) Af Amer 116, Est GFR (MDRD) Non-Af 96, BUN/Creatinine Ratio 11.5, Glucose 91, Calcium 8.0 L, Iron 223 H, TIBC 234 L, Iron Saturation 95.3 H, Ferritin 1020 H Radiography Diagnostic Testing: Radiology Impression Chest X-Ray 06/23/23 12:59 IMPRESSION: Lingular infiltrate with likely atelectasis and effusion. Follow-up recommended to ensure complete resolution Electronically Signed: Darrian Dockery MD at 14:18 EST , Physical Exam Const alert, oriented x3 and no apparent distress Constitutional Narrative: Patient appears older than stated age General Appearance: cooperative, well kempt and well developed Orientation / Consciousness: awake, oriented to person, oriented to place and oriented to time HEENT normocephalic, head/scalp atraumatic and moist oral mucous membranes Eyes PERRL, EOMs intact bilaterally and conjunctivae normal Neck supple, no JVD, thyroid normal and no carotid bruits General: trachea midline Resp normal respiratory effort, no retractions, no use of accessory muscles and clear to auscultation bilaterally Auscultation: Negative for rales, rhonchi or wheezes Cardio regular rate, regular rhythm, S1 normal heart sound, S2 normal heart sound, no murmurs, no rub and no gallops GI normal to inspection, nondistended, normoactive bowel sounds, soft to palpation, non-tender and non-distended Extremity no clubbing, cyanosis or edema Skin no rashes or lesions noted General Skin Exam: no breakdown Neuro oriented x3, CN's II-XII intact bilaterally, moves all extremities, no focal motor deficits and no sensory deficits noted Sensorium / Orientation: awake, alert, oriented to person, oriented to place and oriented to time Speech: speech normal Psych affect normal Assessment & Plan Assessment/Plan (1) Lingular pneumonia: PLAN: Plan 1. Left lingular pneumonia-continue with Zosyn for now, I have elected to stop his vancomycin #2 acute on chronic anemia-etiology unclear at this point, patient will receive 2 units of packed red blood cells, CBC will be rechecked tomorrow #3 stage IV lung cancer-type unknown, patient received treatment in [place] #4 chronic obstructive pulmonary disease-patient will continue on aerosol treatments, he is on room air at this time Total clinical time spent by myself addressing the patient's medical issues, reviewing all of his data, and collaborating with patient's care team: 35 minutes Charges/Coding Visit Charges Inpatient E&M: 16598 Subs Hosp L2
[2023-06-25] MEDS: 0.9% Normal Saline (1000mL) 1,000 ML 125 ML IV ×3 (00:16→13:36)
[2023-06-25 03:30] VITALS: BP 120/81; PULSE 65; RESP 16; TEMP 36.6; O2SAT 98
[2023-06-25] MEDS: Piperacil/Tazobactam 3.375 GM in 0.9% Normal Saline (50mL MB+) 50 ML IV ×2 (05:28→13:36)
[2023-06-25 06:18] LABS: Absolute Lymphocyte Count 1.01 X10^3/uL (0.83-4.51); Absolute Neutrophil Count 4.1 X10^3/uL (2.0-7.7); Basophil# 0.02 X10^3/uL; Basophil% 0.4 % (0-1); Eosinophil# 0.03 X10^3/uL; Eosinophils% 0.6 % (0-5); Hematocrit 27.4 % (40-54); Hemoglobin 8.9 g/dL (13.0-16.5); Lymphocyte # 1.01 X10^3/ul (0.83-4.51); Lymphocyte % 19.2 % (19-41); Mean Corp Hgb Conc 32.5 g/dL (32-36); Mean Corpuscular Hgb 30.9 pg (27.0-32.0); Mean Corpuscular Volume 95.1 fL (80-94); Monocyte# 0.05 X10^3/uL; NRBC Flagged by Analyzer 0 % (0-5); Neutrophil # 4.11 X10^3/uL (2.7-7.7); Neutrophil % 78.2 % (47-70); POSITIVE MORPHOLOGY YES; Platelet Count 284 K/mm3 (150-450); RBC Distribution Width CV 20.3 % (11.6-14.6); RBC Distribution Width SD 61.1 fl (35.1-43.9); Red Blood Count 2.88 M/mm3 (4.6-6.2); White Blood Count 5.3 K/mm3 (4.4-11.0)
[2023-06-25 06:30] LABS: Differential Indicated SCAN CRITERIA MET
[2023-06-25 07:24] LABS: Anisocytosis 2+; Reactive Lymphocyte 1+
[2023-06-25 09:00] VITALS: BP 127/89; PULSE 65; RESP 18; TEMP 37.2; O2SAT 98
[2023-06-25] MEDS: Methadone 10 MG Tablet PO (09:01)
[2023-06-25] MEDS: Folic Acid 1 MG Tablet PO (09:02)
--- NOTE | 2023-06-25 10:15 | CASEMGMT ---
RN REAGAN Face to Face with patient for initial transition planning/care coordination assessment. RN CM introduced self and role at [facility]. Patient lying in bed, alert and oriented. Patient willing to participate in assessment and is able to answer all questions appropriately. Care providers, pharmacy, and demographics verified. Patient wishes to discharge home, denies need for home health at this time. Patient states he has no further needs or concerns at this time. CM to follow for discharge planning needs that may arise. PCP: Patient has appointment 06/28/23 with [facility] PCP Specialists: Kristen OncologistDulce Preferred Pharmacy: [facility] Insurance: [employer] Prescription Benefit: yes Living Will/HPOA: none LNOK: friend Living Arrangements: Patient lives with roommates in a 2 story home with bed and bath on first floor. Patient states he is independent at home. Transportation:self, roommate DME/HHC: Patient denies DME in the home. No previous HHC or SNF Disposition Plan: Patient to discharge home with family support and follow-up plans in place. Lea GONZALES, RN, CM
[2023-06-25 13:25] VITALS: O2SAT 94; O2SAT 98
[2023-06-25] MEDS: Calcium Carbonate 500 MG Tablet PO (14:29)
[2023-06-25 15:00] VITALS: BP 116/98; PULSE 71; RESP 18; TEMP 36.7; O2SAT 98
--- NOTE | 2023-06-25 15:53 | DCINST_ITS ---
Discharge Instructions Diet Discharge Diet: No restrictions Activity Discharge Activity: Return to Normal Activity Weight Bearing Status: Full weight bearing Follow Up Care Test Results: Test results from this visit will be discussed in further detail at your follow- up appointment, if applicable. Pending Tests Upon Discharge: None Discharge Plan Admission Admit Date/Time: 06/23/23 17:22 Primary Reason for Your Visit: Pneumonia Attending Provider: Koby Dillon Primary Care Provider: Care Physician,No Primary Consulting Providers: Isacc Barrientos; Mathew Cary Instructions Additional Instructions / Restrictions: Please take Augmentin twice daily through 07/03 to complete a 10-day course of antibiotics for your pneumonia. Otherwise, continue your other home medications as normal. Please establish with a primary care doctor soon. Follow-up with your oncology doctor as previously scheduled. Discharge Orders/Prescriptions Prescriptions: New amoxicillin-pot clavulanate 875-125 mg tablet 1 tab PO BID 8 Days Qty: 16 0RF Continued albuterol sulfate [ProAir HFA] 90 mcg/actuation HFA aerosol inhaler 2 inh inhalation Q4H PRN (Reason: shortness of breath or wheezing) folic acid 1 mg tablet 1,000 mcg PO DAILY Stiolto Respimat 2.5-2.5 mcg/actuation mist 2 inh inhalation DAILY dexamethasone 4 mg tablet 8 mg PO DAILY Patient Comments: take 2 tablets by mouth IN THE MORNING with food THE DAY BEFORE AND THE DAY AFTER EACH TREATMENT levothyroxine 88 mcg tablet 88 mcg PO DAILY Patient Comments: take 1 tablet by mouth every morning ON AN EMPTY STOMACH morphine 15 mg tablet 15 mg PO Q4H PRN (Reason: pain (scale score 4-6)) mirtazapine 7.5 mg tablet 7.5 mg PO .hs Discontinued ipratropium-albuterol 0.5 mg-3 mg(2.5 mg base)/3 mL solution for nebulization 3 ml continuous nebulization Q4H PRN (Reason: shortness of breath or wheezing) Patient Comments: inhale contents of 1 vial ( 3 milliliters ) in nebulizer by mouth... (REFER TO PRESCRIPTION NOTES). levothyroxine 75 mcg tablet Patient Comments: take 1 tablet by mouth every morning ON AN EMPTY STOMACH triamcinolone acetonide 0.5 % ointment 1 applic TOPICAL DAILY Patient Comments: apply externally twice a day for up to 2 WEEKS gabapentin 300 mg capsule 300 mg PO TID Patient Comments: pt hasn't taken meds for a month and half now . Referrals / Follow Up: Care Physician,No Primary [Primary Care Provider] - Disposition Disposition (needs filled in before D/C Order can be placed): Home, Self Care
--- NOTE | 2023-06-25 16:01 | DS.PCM_ITS ---
Providers Date of Admission: 06/23/23 Date of Discharge: 06/25/23 Primary Care Physician: No Primary Care Phys Reason For Visit: PNEUMONIA Diagnosis Discharge Diagnosis (1) Lingular pneumonia: Status: Acute Code(s): J18.9 - Pneumonia, unspecified organism Medications at Discharge Home Medications albuterol sulfate 90 mcg/actuation aerosol inhaler (ProAir HFA) 2 inh inhalation Q4H PRN shortness of breath or wheezing 06/23/23 dexamethasone 4 mg tablet 8 mg PO DAILY 06/23/23 folic acid 1 mg tablet 1,000 mcg PO DAILY supplement 06/23/23 levothyroxine 88 mcg tablet 88 mcg PO DAILY hypothyroidism 06/23/23 mirtazapine 7.5 mg tablet 7.5 mg PO .hs 06/23/23 morphine 15 mg immediate release tablet 15 mg PO Q4H PRN pain (scale score 4-6) 06/23/23 tiotropium 2.5 mcg-olodaterol 2.5 mcg/actuation mist for inhalation (Stiolto Respimat) 2 inh inhalation DAILY shortness of breath 06/23/23 amoxicillin 875 mg-potassium clavulanate 125 mg tablet 1 tab PO BID 8 days #16 tabs 06/25/23 Hospital Course Operations None Procedures EKG and - (Chest x-ray) Summary of Care Provided Minutes Spent on Discharge: 35 Hospital Course: Patient is a 58-year-old male who presented to [facility] ED on 06/23/2023 with mild hypotension in setting of left lingular pneumonia. Short hospital course as noted below. Patient discharged home in stable condition on 06/25. 1. Lingular pneumonia with hypotension in the absence of sepsis ? Chest x-ray on admit showed lingular infiltrate with likely atelectasis and effusion. Treated with IV antibiotics while inpatient with good improvement. Transitioned to p.o. Augmentin on discharge to complete a 10-day course. 2. Stage IV metastatic lung cancer, COPD ? Stable, not on home oxygen. Patient receiving treatment in [place]. Recommended outpatient oncology follow-up on discharge. Continued home dexamethasone, long-acting inhaler, albuterol as needed, morphine on discharge. 3. Acute on chronic anemia, stable ? Suspect primarily chronic anemia due to active cancer, with hemodilution during admission. Hemoglobin 8.7 on admit, dropped to 6.7 on 06/24. S/p 2 units of packed red blood cells with improvement hemoglobin 8.9. Recommend repeat CBC in 5 to 7 days to ensure stability of hemoglobin. Chronic medical conditions: ? Hypothyroidism: Stable. Continued home Synthroid. ? Anxiety/depression: Stable. Continued home Remeron. Total clinical time spent by myself addressing the patient's discharge needs: 35 minutes. Physical Exam Const alert, oriented x3 and no apparent distress General Appearance: cooperative and comfortable HEENT normocephalic, head/scalp atraumatic, hearing grossly normal bilaterally, nasal mucous membranes and turbinates normal and moist oral mucous membranes Eyes PERRL, EOMs intact bilaterally and conjunctivae normal Neck full ROM, no lymphadenopathy and supple Lymph Lymphatic: no lymphadenopathy noted Chest inspection of chest normal Resp Resp Narrative: Mildly decreased breath sounds on right side, improved from admission. Satting well on room air with no increased work of breathing noted. No wheezing or crackles noted. Cardio regular rate, regular rhythm, no murmurs and peripheral pulses 2+ throughout GI normal to inspection, nondistended, normoactive bowel sounds, soft to palpation, non-tender and non-distended Back/Spine normal ROM Extremity normal to inspection, full ROM and no pedal edema Skin no rashes or lesions noted Neuro moves all extremities and no focal motor deficits Speech: speech normal Psych mental status grossly normal Medical Records Data Medical Nutrition Assessment Dietitian: Malnutrition Criteria Met Start: 06/24/23 11:59 Freq: Status: Active Protocol: Document 06/24/23 11:59 (Rec: 06/24/23 11:59 AG [id number]) Nutrition Malnutrition Evidence of Malnutrition Exists Yes Malnutrition (severe): Chronic Evidenced By Suboptimal Energy Intake ( Severe),Weight Loss (Severe), Physical Changes (Severe) Clinical Problem Chronic Disease or Condition Related Malnutrition Etiology severe, chronic malnutrition related to inadequate energy intake w/ increased energy needs d/t cancer Signs/Symptoms as evidenced by estimated PO intake meeting <75% of estimated energy needs > 3 months, unintentional 11% wt loss < 4 months, Severe muscle wasting/fat loss evident per physical exam in orbital, clavicle, acromion, and temporal areas, BMI 18.6 Status Active Problem Recommendation Dietitian Recommendations/Changes regular diet and ensure plus high protein 120mL 4x/day w/ medpass for additional nutrition if consumed Weight / BMI Weight Weight: 60.8 kg Body Mass Index (BMI) 18.6 ABG / Lab / Microbiology Data 06/25/23 05:30 06/24/23 06:07 Laboratory: Laboratory Results - last 24 hr 06/24/23 11:18: Blood Type A NEGATIVE, Antibody Screen NEGATIVE, Crossmatch See Detail 06/25/23 05:30: WBC 5.3, RBC 2.88 L, Hgb 8.9 L, Hct 27.4 L, MCV 95.1 H, MCH 30.9, MCHC 32.5, RDW Std Deviation 61.1 H, RDW Coeff of Fred 20.3 H, Plt Count 284, MPV 9.0, Immature Gran % (Auto) 0.600, Neut % (Auto) 78.2 H, Lymph % (Auto) 19.2, [place] % (Auto) 1.0, Eos % (Auto) 0.6, Baso % (Auto) 0.4, Absolute Neuts (auto) 4.1, Absolute Lymphs (auto) 1.01, Nucleated RBC % 0, Reactive Lymphocytes 1+, Anisocytosis 2+ Microbiology: Microbiology 06/24/23 18:30 Sputum, Expectorated/Coughed Gram Stain - Final 06/23/23 14:45 Urine, Clean Catch Urine Culture - Final Culture exhibits no growth. 06/23/23 18:09 Urine, Clean Catch Legionella Antigen - Final 06/23/23 18:09 Urine, Clean Catch Streptococcus pneumoniae Antigen (M - Final D/C Instructions Discharge Diet: No restrictions Weight Bearing Status: Full weight bearing Pending Tests Upon Discharge: None Meaningful Use Info Meaningful Use Diagnoses (Choose all that apply): None applicable Discharge Plan Admission Admit Date/Time: 06/23/23 16:11 Primary Reason for Your Visit: Pneumonia Attending Provider: Koby Dillon Primary Care Provider: Care Physician,No Primary Consulting Providers: Isacc Barrientos Mark Instructions Additional Instructions / Restrictions: Please take Augmentin twice daily through 07/03 to complete a 10-day course of antibiotics for your pneumonia. Otherwise, continue your other home medications as normal. Please establish with a primary care doctor soon. Follow-up with your oncology doctor as previously scheduled. Discharge Orders/Prescriptions Prescriptions: New amoxicillin-pot clavulanate 875-125 mg tablet 1 tab PO BID 8 Days Qty: 16 0RF Continued albuterol sulfate [ProAir HFA] 90 mcg/actuation HFA aerosol inhaler 2 inh inhalation Q4H PRN (Reason: shortness of breath or wheezing) folic acid 1 mg tablet 1,000 mcg PO DAILY Stiolto Respimat 2.5-2.5 mcg/actuation mist 2 inh inhalation DAILY dexamethasone 4 mg tablet 8 mg PO DAILY Patient Comments: take 2 tablets by mouth IN THE MORNING with food THE DAY BEFORE AND THE DAY AFTER EACH TREATMENT levothyroxine 88 mcg tablet 88 mcg PO DAILY Patient Comments: take 1 tablet by mouth every morning ON AN EMPTY STOMACH morphine 15 mg tablet 15 mg PO Q4H PRN (Reason: pain (scale score 4-6)) mirtazapine 7.5 mg tablet 7.5 mg PO .hs Discontinued ipratropium-albuterol 0.5 mg-3 mg(2.5 mg base)/3 mL solution for nebulization 3 ml continuous nebulization Q4H PRN (Reason: shortness of breath or wheezing) Patient Comments: inhale contents of 1 vial ( 3 milliliters ) in nebulizer by mouth... (REFER TO PRESCRIPTION NOTES). levothyroxine 75 mcg tablet Patient Comments: take 1 tablet by mouth every morning ON AN EMPTY STOMACH triamcinolone acetonide 0.5 % ointment 1 applic TOPICAL DAILY Patient Comments: apply externally twice a day for up to 2 WEEKS gabapentin 300 mg capsule 300 mg PO TID Patient Comments: pt hasn't taken meds for a month and half now . Referrals / Follow Up: Care Physician,No Primary [Primary Care Provider] - Disposition Disposition (needs filled in before D/C Order can be placed): Home, Self Care Charges/Coding Visit Charges Inpatient E&M: 78205 Disch Hosp >30min
--- NOTE | 2023-06-25 16:20 | CASEMGMT ---
Patient has order for discharge. RN CM in to discuss needs at discharge. Patient denies needs at discharge. Patient had no further questions or concerns at this time.
== END 2023-06-25 16:47 | disposition home or self-care (01) | DRG 139 ==
LOC: ED 15:32 → PCU 06-24 07:07
PROVIDERS: Internal Medicine; Admitting Provider Family Medicine; Emergency Provider Emergency Medicine; Visit Provider Hospitalist
DX: J13 Pneumonia due to Streptococcus pneumoniae (principal); E43 Unspecified severe protein-calorie malnutrition; J44.0 Chronic obstructive pulmonary disease with (acute) lower respiratory infection; C34.90 Malignant neoplasm of unspecified part of unspecified bronchus or lung; D63.0 Anemia in neoplastic disease; E03.9 Hypothyroidism, unspecified; F32.A Depression, unspecified; F17.210 Nicotine dependence, cigarettes, uncomplicated; F41.9 Anxiety disorder, unspecified; Z66 Do not resuscitate; Z68.1 Body mass index [BMI] 19.9 or less, adult; Z79.899 Other long term (current) drug therapy
CPT/HCPCS: 36415; 71045; 80048; 80053; 81001; 82728; 83540; 83550; 83605; 85025; 85610; 85730; 86850; 86900; 86901; 86920; 86922; 87040; 87070; 87077; 87086; 87186; 87205; 87449; 93005; 97802; 99285; J7030; J7040; P9016; A4216

== ENCOUNTER 2023-09-26 15:09 | Observation (INO) | payer MEDICAID, SELFPAY ==
[2023-09-26] VITALS (9 sets, daily range): BP systolic 84–100; BP diastolic 70–78; PULSE 11–88; RESP 13–20; TEMP 36.4–36.6; O2SAT 86–99; BMI 17.2; BMI 16.7
--- NOTE | 2023-09-26 15:14 | ED.VIS.PED ---
HPI HPI - PEDS History of Present Illness Chief Complaint: Diarrhea Informant: patient and parent Narrative Narrative: Patient is PFSH [facility] Medical History (Updated 07/03/23 @ 00:02 by Maye Cuadar) COPD (chronic obstructive pulmonary disease) Metastatic primary lung cancer Stage 4 lung cancer Home Medications albuterol sulfate 90 mcg/actuation aerosol inhaler (ProAir HFA) 2 inh inhalation Q4H PRN shortness of breath or wheezing 06/23/23 [History Last Taken Unknown] dexamethasone 4 mg tablet 8 mg PO DAILY 06/23/23 [History Last Taken Unknown] folic acid 1 mg tablet 1,000 mcg PO DAILY supplement 06/23/23 [History Last Taken Unknown] levothyroxine 88 mcg tablet 88 mcg PO DAILY hypothyroidism 06/23/23 [History Last Taken Unknown] mirtazapine 7.5 mg tablet 7.5 mg PO .hs 06/23/23 [History Last Taken Unknown] morphine 15 mg immediate release tablet 15 mg PO Q4H PRN pain (scale score 4-6) 06/23/23 [History Last Taken Unknown] tiotropium 2.5 mcg-olodaterol 2.5 mcg/actuation mist for inhalation (Stiolto Respimat) 2 inh inhalation DAILY shortness of breath 06/23/23 [History Last Taken Unknown] amoxicillin 875 mg-potassium clavulanate 125 mg tablet 1 tab PO BID 8 days #16 tabs 06/25/23 [Rx Last Taken Unknown] Allergy/AdvReac Type Severity Reaction Status Date / Time No Known Allergies Allergy Verified 06/23/23 12:51 Family History (Updated 06/23/23 @ 16:[address] Isacc Barrientos MD) Other Cancer Social History (Updated 06/23/23 @ 13:[address] Joselito Mathias MD) household members: none Smoking Status: Current every day smoker tobacco type: cigarettes substance use type: does not use Discharge Plan Triage Chief Complaint: Diarrhea ED Provider: Day Louie Dx/Rx/DC Orders Prescriptions: No Action albuterol sulfate [ProAir HFA] 90 mcg/actuation HFA aerosol inhaler 2 inh inhalation Q4H PRN (Reason: shortness of breath or wheezing) folic acid 1 mg tablet 1,000 mcg PO DAILY Stiolto Respimat 2.5-2.5 mcg/actuation mist 2 inh inhalation DAILY dexamethasone 4 mg tablet 8 mg PO DAILY Patient Comments: take 2 tablets by mouth IN THE MORNING with food THE DAY BEFORE AND THE DAY AFTER EACH TREATMENT levothyroxine 88 mcg tablet 88 mcg PO DAILY Patient Comments: take 1 tablet by mouth every morning ON AN EMPTY STOMACH morphine 15 mg tablet 15 mg PO Q4H PRN (Reason: pain (scale score 4-6)) mirtazapine 7.5 mg tablet 7.5 mg PO .hs amoxicillin-pot clavulanate 875-125 mg tablet 1 tab PO BID 8 Days Qty: 16 0RF Primary Care Provider: Care Physician,No Primary Referrals: Care Physician,No Primary [Primary Care Provider] -
--- NOTE | 2023-09-26 15:32 | EKG12_ITS ---
Test Reason : Blood Pressure : / mmHG Vent. Rate : 079 BPM Atrial Rate : 079 BPM P-R Int : 154 ms QRS Dur : 094 ms QT Int : 372 ms P-R-T Axes : 075 089 099 degrees QTc Int : 426 ms Normal sinus rhythm Nonspecific T wave abnormality Abnormal ECG Confirmed by TIFFANY TORIBIO, BETH ([id number]), editorial director LEELA SHEPARD ([id number]) on 09/27/2023 6:18:43 AM Referred By: Confirmed By:BETH ALLEN MD
--- NOTE | 2023-09-26 15:33 | CT_ITS ---
EXAM: CT ABDOMEN AND PELVIS WITH INTRAVENOUS CONTRAST CLINICAL INDICATION: abd pain . Lung cancer. COPD. TECHNIQUE: Helically acquired images were obtained of the abdomen and pelvis with intravenous contrast. This CT exam was performed using one or more of the following dose reduction techniques: automated exposure control, adjustment of the mA and/or kV according to patient size, and/or use of iterative reconstruction technique. CONTRAST: IV 100mL Isovue-300 RADIATION DOSE: CTDIvol = 10.16 mGy, DLP = 352.82 mGy-cm COMPARISON: No relevant prior studies available. FINDINGS: LOWER THORAX: Small probably free-flowing effusion in the lower right hemithorax with prominent compressive atelectasis of the right lung. Probable mass in the medial lower left lung and involving the left hilum. Multiple pockets of loculated effusion or empyema partially visualized in the lower left hemithorax, measuring as much as 13.0 cm. No cardiomegaly. ABDOMEN: LIVER: Mild intrahepatic bile duct distention.. Homogeneous. No focal mass. GALLBLADDER AND BILE DUCTS: Moderate to marked distention of the gallbladder. No calcified gallstones. Mild extrahepatic biliary ductal dilation. PANCREAS: Unremarkable. No focal cystic or solid mass. SPLEEN: Unremarkable. Normal size without focal cystic or solid mass. ADRENALS: Unremarkable. No nodules. KIDNEYS AND URETERS: Unremarkable. Normal renal size and position. No hydronephrosis. STOMACH AND BOWEL: Evaluation of the GI tract is limited by absence of oral contrast. Cannot exclude stomach wall thickening. No dilated loops of bowel or evidence for obstruction. Diffuse enhancement of small bowel wall suggestive of nonspecific enteritis, enhancement and probable thickening of the wall of much of the large bowel especially the rectosigmoid segment. Marked fecal retention. Finding consistent with nonspecific enterocolitis. Appendix within normal limits. PELVIS: APPENDIX: No evidence of acute appendicitis. BLADDER: Unremarkable. REPRODUCTIVE: Unremarkable as visualized. No mass. ABDOMEN and PELVIS: INTRAPERITONEAL SPACE: Unremarkable. No ascites or other fluid collection. No free air. BONES/JOINTS: Degenerative changes throughout the bones. No suspicious lytic or blastic abnormality. SOFT TISSUES: Unremarkable. No discrete abdominal or pelvic wall hernia. VASCULATURE: Unremarkable. Abdominal aorta is non-dilated. LYMPH NODES: Unremarkable. No enlarged lymph nodes. CT/Abdomen/Pelvis W IV Cont ONLY IMPRESSION: 1. Extensive abnormalities in the visualized lung bases as described. 2. Evaluation of GI tract limited by absence of oral contrast. Nevertheless, GI tract appears diffusely abnormal with diffuse enhancement of small bowel wall suggestive of nonspecific enteritis, enhancement and probable thickening of the wall of much of the large bowel especially the rectosigmoid segment. Marked fecal retention. Finding consistent with nonspecific enterocolitis. Electronically Signed: Jose A Sylvester MD at 16:43 EDT ,
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
[2023-09-26] MEDS: 0.9% Normal Saline (1000mL) 1,000 ML 1000 ML IV (15:47)
[2023-09-26] MEDS: Ipratropium/Albuterol Sulfate 3 ML AMPUL.NEB INHALATION (15:50)
[2023-09-26] MEDS: fentaNYL 100 MCG/2 ML Ampul 50 MCG IV (16:02)
[2023-09-26 16:03] LABS: Absolute Lymphocyte Count 0.92 X10^3/uL (0.83-4.51); Absolute Neutrophil Count 4.2 X10^3/uL (2.0-7.7); Basophil# 0.01 X10^3/uL; Basophil% 0.2 % (0-1); Eosinophil# 0.01 X10^3/uL; Eosinophils% 0.2 % (0-5); Hematocrit 30.5 % (40-54); Hemoglobin 10.3 g/dL (13.0-16.5); Lymphocyte # 0.92 X10^3/ul (0.83-4.51); Lymphocyte % 16.7 % (19-41); Mean Corp Hgb Conc 33.8 g/dL (32-36); Mean Corpuscular Hgb 34.4 pg (27.0-32.0); Mean Platelet Vol. 10.3 fl (6.2-12.0); Monocyte# 0.35 X10^3/uL; Monocyte% 6.4 % (0-10); NRBC Flagged by Analyzer 0 % (0-5); Neutrophil # 4.19 X10^3/uL (2.7-7.7); Neutrophil % 76.1 % (47-70); Platelet Count 134 K/mm3 (150-450); RBC Distribution Width CV 14.6 % (11.6-14.6); RBC Distribution Width SD 54.2 fl (35.1-43.9); Red Blood Count 2.99 M/mm3 (4.6-6.2); White Blood Count 5.5 K/mm3 (4.4-11.0)
--- NOTE | 2023-09-26 16:12 | RAD_ITS ---
STUDY: X-RAY CHEST REASON FOR EXAM: Male, 58 years old. cough, sob TECHNIQUE: AP portable COMPARISON: June 23, 2023 FINDINGS: Mixed interstitial alveolar infiltration in the left lower lobe. Small left pleural effusion.. There is a large masslike density in the left upper lobe possibly representing loculated effusion Normal size heart. Normal mediastinum and gómez. Normal visualized pulmonary arteries. Normal visualized aortic arch and descending thoracic aorta. Normal visualized thoracic spine. Normal visualized ribs, clavicles, and shoulders. Intravascular contrast is seen in the left lateral chest wall There is no demonstrated abnormality of the visualized soft tissue structures of the upper abdomen. RAD/Chest 1 View (Portable) IMPRESSION: Mixed interstitial alveolar infiltration in left lower lobe with small pleural effusion. Possible mass in the left upper lobe versus loculated pleural effusion CT would be helpful for further assessment if clinically warranted Electronically Signed: Gary Tyler MD at 20:37 EDT ,
[2023-09-26 16:25] LABS: ALB/GLOB Ratio 0.9 RATIO (0.9-2.4); AST(SGOT) 31 U/L (15-37); Alanine Aminotransfer ALT/SGPT 17 U/L (16-61); Albumin, Serum 2.9 g/dL (3.2-5.0); Alkaline Phosphatase 115 U/L (45-117); Anion Gap 8 (5-15); BUN 9 mg/dL (7-18); BUN/Creat Ratio 9.4 RATIO (10-20); Calcium,Total 8.6 mg/dL (8.5-10.1); Chloride 98 mmol/L (98-107); Creatinine, Serum 0.95 mg/dL (0.70-1.30); EST Glomerular Filtration Rate 86 mL/min (>60); Est Glom Filt Rate - Afr Amer 104 mL/min (>60); Estimated Creatinine Clearance 67.37 ml/min; Globulin 3.2 g/dL (2.2-4.2); Glucose 107 mg/dL (74-106); Lipase 21 U/L (13-75); Potassium 3.2 mmol/L (3.5-5.1); Protein, Total 6.1 g/dL (6.4-8.2); Sodium Level 133 mmol/L (136-145); Troponin-I HS 3 pg/mL (3.0-78.0)
[2023-09-26 16:58] LABS: Lactic Acid 1.6 mmol/L (0.4-1.9)
--- NOTE | 2023-09-26 17:57 | NURSING ---
CALLED HOSPICE FOR DR BOWERS
--- NOTE | 2023-09-26 19:24 | HP.PCM.HOS_ITS ---
HPI - General General Date of Admission: 09/26/23 HPI Narrative MINERVA EVANGELISTA, is a 58 M who presents to the hospital with general malaise and weakness as well as severe constipation. He does have stage IV lung cancer and unable to receive treatment for the last several weeks secondary to declined physical condition. The ED physician did speak to him about possible hospice and he would be interested in considering this unfortunately hospice nursing was unable to come to the hospital this evening. In the meantime he would like to be made comfortable and have treatment for his constipation as well as pain. He is on methadone 10 twice daily but he states that this does not help all that much. He has had some nausea due to the constipation and has been having poor p.o. intake however vital signs are all stable and his electrolytes other than his potassium are fairly stable with a normal creatinine. [facility] Medical History COPD (chronic obstructive pulmonary disease) Metastatic primary lung cancer Stage 4 lung cancer Home Medications albuterol sulfate 90 mcg/actuation aerosol inhaler (ProAir HFA) 2 inh inhalation Q4H PRN shortness of breath or wheezing 06/23/23 [History Last Taken Unknown] morphine 15 mg immediate release tablet 15 mg PO Q4H PRN pain (scale score 4-6) 06/23/23 [History Last Taken 09/25/23] methadone 10 mg tablet 10 mg PO BID 09/26/23 [History Last Taken 09/25/23] Allergy/AdvReac Type Severity Reaction Status Date / Time No Known Allergies Allergy Verified 06/23/23 12:51 Family History Other Cancer Social History household members: none Smoking Status: Current every day smoker tobacco type: cigarettes substance use type: does not use ROS Constitutional Constitutional: Reports malaise and weakness; Denies chills, fatigue or fever(s) Eyes Eyes: Denies blurry vision ENT HEENT: Denies headache(s) or nasal discharge Cardiovascular Cardiovascular: Denies chest pain, dyspnea on exertion or syncope Respiratory/Chest Respiratory/Chest: Denies cough, shortness of breath at rest or shortness of breath with exertion Gastrointestinal Gastrointestinal: Reports abdominal pain, constipation and nausea; Denies diarrhea or vomiting Genitourinary Genitourinary: Denies dysuria Neurologic Neurologic: Denies focal weakness, numbness or tremor(s) Psychiatric Psychiatric: Denies anxiety or depression Vital Signs Vital Signs Vital Signs: 09/26/23 15:13 09/26/23 15:46 09/26/23 15:50 Temperature 97.7 F L Temperature Source Oral Pulse Rate 88 83 Respiratory Rate 20 H 19 H Blood Pressure 84/70 L 89/70 L Blood Pressure Mean 74 76 Pulse Ox 90 92 90 Oxygen Delivery Method Room Air Nasal Cannula Nasal Cannula Oxygen Flow Rate (L/min) 2 2 09/26/23 15:50 09/26/23 16:02 09/26/23 17:10 Temperature Temperature Source Pulse Rate 83 88 Respiratory Rate 13 16 Blood Pressure 88/76 L Blood Pressure Mean 80 Pulse Ox 86 98 Oxygen Delivery Method Nasal Cannula Nasal Cannula Oxygen Flow Rate (L/min) 2 3 09/26/23 18:54 09/26/23 19:00 Temperature 97.6 F L Temperature Source Pulse Rate 11 L 83 Respiratory Rate 18 20 H Blood Pressure 91/74 99/78 Blood Pressure Mean 79 85 Pulse Ox 99 97 Oxygen Delivery Method Nasal Cannula Oxygen Flow Rate (L/min) 3 Weight Weight: 123 lb 14.397 oz Body Mass Index (BMI) 17.2 Physical Exam Narrative General: Alert, Oriented x3, Cooperative, No apparent distress, cachectic and malnourished HEENT: Atraumatic, PERRLA, EOMI, Normocephalic Oral: Dry mucosa Neck: Supple, No JVD Lungs: Diminished, Normal air movement, No rhonchi, No wheeze, No rales Cardiovascular: Regular rate, Regular Rhythm, Normal S1, Normal S2, No murmurs Abdomen: Soft, minimally tender, Non-Distended, No Hepato-splenomegaly Extremities: No edema, Capillary Refill Less than 3 Seconds Skin: No rashes, No breakdown Musculoskeletal: No Tenderness to Palpation of Joints or Extremities Neurological: No focal neurological deficits, Motor Exam 5/5 strength throughout, Sensory exam intact to light touch and pain Psych/Mental Status: Flat Results Lab / Micro Data 09/26/23 15:53 09/26/23 15:53 Labs: Laboratory Results - last 24 hr 09/26/23 15:52: Blood Type A NEGATIVE, Antibody Screen NEGATIVE 09/26/23 15:53: WBC 5.5, RBC 2.99 L, Hgb 10.3 L, Hct 30.5 L, MCV 102.0 H, MCH 34.4 H, MCHC 33.8, RDW Std Deviation 54.2 H, RDW Coeff of Fred 14.6, Plt Count 1 34 L, MPV 10.3, Immature Gran % (Auto) 0.400, Neut % (Auto) 76.1 H, Lymph % (Auto) 16.7 L, [place] % (Auto) 6.4, Eos % (Auto) 0.2, Baso % (Auto) 0.2, Absolute Neuts (auto) 4.2, Absolute Lymphs (auto) 0.92, Nucleated RBC % 0, Sodium 133 L, Potassium 3.2 L, Chloride 98, Carbon Dioxide 27.0, Anion Gap 8, BUN 9, Creatinine 0.95, Estim Creat Clear Calc 67.37, Est GFR (MDRD) Af Amer 104, Est GFR (MDRD) Non-Af 86, BUN/Creatinine Ratio 9.4 L, Glucose 107 H, Lactic Acid 1.6, Calcium 8.6, Total Bilirubin 0.80, AST 31, ALT 17, Alkaline Phosphatase 115, Troponin I High Sens 3, Total Protein 6.1 L, Albumin 2.9 L, Globulin 3.2, Albumin/Globulin Ratio 0.9, Lipase 21 Micro: Microbiology 09/26/23 16:07 Mucosa - Nose SARS-CoV-2, Influenza & RSV (PCR) - Final 09/26/23 15:53 Stool Stool Occult Blood (TIFFANY) - Final Occult Blood Positive Imaging Radiology Impression Abdomen/Pelvis CT 09/26/23 15:33 IMPRESSION: 1. Extensive abnormalities in the visualized lung bases as described. 2. Evaluation of GI tract limited by absence of oral contrast. Nevertheless, GI tract appears diffusely abnormal with diffuse enhancement of small bowel wall suggestive of nonspecific enteritis, enhancement and probable thickening of the wall of much of the large bowel especially the rectosigmoid segment. Marked fecal retention. Finding consistent with nonspecific enterocolitis. Electronically Signed: Jose A Sylvester MD at 16:43 EDT , Assessment & Plan Assessment/Plan (1) Constipation: PLAN: Plan 1. Generalized weakness and constipation secondary to narcotic use for stage IV lung cancer ? His lung cancer treatments were being done at [facility] however he has been unable to receive any Keytruda for the last 5 to 8 weeks, he was aware that this was palliative in nature and that he was on palliative care ? States that he has had severe constipation leading to nausea and poor p.o. intake, potassium today is 3.2 ? Will continue with aggressive pain management and will also place him on a bowel regimen with MiraLAX twice daily as well as senna and soapsuds enema when he gets to the floor. Can adjust as necessary ? I had a 60-minute conversation with him about advance care planning specifically about his prognosis and the need for hospice. He is in agreement with pursuing hospice and they will come and talk to him tomorrow ? Will continue with IV fluids DVT: Lovenox Charges/Coding Visit Charges Inpatient E&M: 64205 Init Hosp L2 Procedures Hospitalists Procedures: 27536 Advncd Care Plan 30 Min
[2023-09-26] MEDS: morphine SR 15 MG Tablet PO (19:36)
[2023-09-26] MEDS: 0.9% Saline Lock 10 ML Syringe IV (21:30)
[2023-09-26] MEDS: 0.9% Normal Saline (1000mL) 1,000 ML 75 ML IV (21:32)
[2023-09-26] MEDS: Senna/Docusate Sodium 1 Tablet 2 TABLET PO (22:33)
[2023-09-26] MEDS: Polyethylene Glycol 3350 17 GM PACKET PO (22:34)
[2023-09-27] VITALS (7 sets, daily range): BP systolic 92–108; BP diastolic 69–82; PULSE 70–79; RESP 16; TEMP 36.4–36.8; O2SAT 86–100
[2023-09-27] MEDS: oxyCODONE 5 MG Tablet PO ×3 (02:21→16:04)
[2023-09-27] MEDS: Morphine 4 MG/ML Syringe IV (06:10)
--- NOTE | 2023-09-27 07:47 | PN.HOSP_ITS ---
Reason for Visit Reason for Visit: Diagnoses Constipation, unspecified (09/26/23) Subjective Subjective Still no BM. Objective Data Objective Data Vital Signs: Vital Signs Temp Pulse Resp BP Pulse Ox O2 Del Method O2 Flow Rate 36.5 C L 77 16 105/82 H 94 Nasal Cannula 2 09/27/23 02:19 09/27/23 02:19 09/27/23 02:19 09/27/23 02:19 09/27/23 06:23 09/27/23 06:23 09/27/23 06:23 Oxygen Flow Rate (L/min) 2 Oxygen Delivery Method Nasal Cannula Weight: 54.1 kg Body Mass Index (BMI) 16.7 Intake & Output: Intake and Output for Last 24 Hours 09/25/23 09/26/23 09/27/23 23:59 23:59 23:59 Intake Total 1200 / 1400 600 / 600 Balance 1200 / 1400 600 / 600 Lab / Micro Data 09/26/23 15:53 09/26/23 15:53 Labs: Laboratory Results - last 24 hr 09/26/23 15:52: Blood Type A NEGATIVE, Antibody Screen NEGATIVE 09/26/23 15:53: WBC 5.5, RBC 2.99 L, Hgb 10.3 L, Hct 30.5 L, MCV 102.0 H, MCH 34.4 H, MCHC 33.8, RDW Std Deviation 54.2 H, RDW Coeff of Fred 14.6, Plt Count 134 L, MPV 10.3, Immature Gran % (Auto) 0.400, Neut % (Auto) 76.1 H, Lymph % (Auto) 16.7 L, [place] % (Auto) 6.4, Eos % (Auto) 0.2, Baso % (Auto) 0.2, Absolute Neuts (auto) 4.2, Absolute Lymphs (auto) 0.92, Nucleated RBC % 0, Sodium 133 L, Potassium 3.2 L, Chloride 98, Carbon Dioxide 27.0, Anion Gap 8, BUN 9, Crea tinine 0.95, Estim Creat Clear Calc 67.37, Est GFR (MDRD) Af Amer 104, Est GFR (MDRD) Non-Af 86, BUN/Creatinine Ratio 9.4 L, Glucose 107 H, Lactic Acid 1.6, Calcium 8.6, Total Bilirubin 0.80, AST 31, ALT 17, Alkaline Phosphatase 115, Troponin I High Sens 3, Total Protein 6.1 L, Albumin 2.9 L, Globulin 3.2, Albumin/Globulin Ratio 0.9, Lipase 21 Micro: Microbiology 09/26/23 16:07 Mucosa - Nose SARS-CoV-2, Influenza & RSV (PCR) - Final 09/26/23 15:53 Stool Stool Occult Blood (TIFFANY) - Final Occult Blood Positive Radiography Diagnostic Testing: Radiology Impression Abdomen/Pelvis CT 09/26/23 15:33 IMPRESSION: 1. Extensive abnormalities in the visualized lung bases as described. 2. Evaluation of GI tract limited by absence of oral contrast. Nevertheless, GI tract appears diffusely abnormal with diffuse enhancement of small bowel wall suggestive of nonspecific enteritis, enhancement and probable thickening of the wall of much of the large bowel especially the rectosigmoid segment. Marked fecal retention. Finding consistent with nonspecific enterocolitis. Electronically Signed: Jose A Sylvester MD at 16:43 EDT , Chest X-Ray 09/26/23 16:12 IMPRESSION: Mixed interstitial alveolar infiltration in left lower lobe with small pleural effusion. Possible mass in the left upper lobe versus loculated pleural effusion CT would be helpful for further assessment if clinically warranted Electronically Signed: Gary Tyler MD at 20:37 EDT , Physical Exam Const alert and no apparent distress Constitutional Narrative: cachectic HEENT head/scalp atraumatic and moist oral mucous membranes Neuro Sensorium / Orientation: awake and alert Assessment & Plan Assessment/Plan (1) Constipation: PLAN: Plan Debility * multifactorial, but primarily due to stage IV lung cancer * Patient met with hospice and now wants to be full code. DNR CCA rescinded and patient now full code. * Patient now interested in group home facility. Constipation * likely narcotic-induced * on miralax and senna, but no affect. Add MiraLAX. Chronic pain * likely malignancy-induced * on oxycodone (methadone at home) Stage IV lung cancer * has not received Keytruda in several weeks. VTE prophylaxis: though high-risk, not a candidate given hospice Charges/Coding Visit Charges Inpatient E&M: 54141 Subs Hosp L2
[2023-09-27] MEDS: Polyethylene Glycol 3350 17 GM PACKET PO ×2 (08:35→22:48)
[2023-09-27] MEDS: Senna/Docusate Sodium 1 Tablet 2 TABLET PO ×2 (08:35→22:47)
[2023-09-27] MEDS: oxyCODONE CR 15 MG Tablet PO ×2 (08:35→22:47)
[2023-09-27] MEDS: 0.9% Normal Saline (1000mL) 1,000 ML 75 ML IV ×2 (08:37→22:48)
--- NOTE | 2023-09-27 10:16 | CASEMGMT ---
Social Work SW spoke with [facility]. Appointment has been scheduled for hospice nurse to meet with pt between [phone] today. Nursing updated. CARLOS Ortega
--- NOTE | 2023-09-27 13:39 | CASEMGMT ---
Discharge Planning A list of?SNF providers including quality and resource use data and consistent with the patient's preferred geographic region, medical needs, and insurance network was created in [employer] Guide.? This list was provided to the SW. Nakia Mathias Discharge Planning Asst.
[2023-09-27] MEDS: Magnesium Citrate 300 ML PO (16:04)
--- NOTE | 2023-09-27 16:16 | CASEMGMT ---
Social Work SW met with pt and introduced self and role of SW. Pt willing to talk with SW regarding home situation, diagnosis, meeting with hospice and discharge goals. Pt lives in the basement apartment of friends. Pt states that he has a flight of steps to the basement and has been independent with care. He states his roommate work a lot of hours and he is home alone most of the time. Pt does not drive and roommates provide needed transportation. Pt has lived with the family on and off for the past 15 years and has moved to [place] from [place] approximately a year ago when the family relocated to [place]. Pt was diagnosed with stage IV lung cancer in February and pt states it has been a whirlwind since then with doctors and treatments. Emotional support provided to pt and coping and support explored. Pt met with [facility] today and pt states he did not know he had so many options. Pt now requesting to go to a nursing facility to get needed care and therapy for strengthening. Pt not opting for hospice services at this time. A list of SNF providers including quality and resource use data and consistent with the patient?s preferred geographic region, medical needs, and insurance network were provided from the [employer] Guide. SW reviewed the SNF list with pt. Pt stating that he would like the input of his roommate Danielle Ng and gave SW permission to call her. Phone call to Danielle Ng. SW explained that pt is choosing to go to SNF and Danielle is agreeable. SW also explained pt is requesting assistance with selecting SNF and Danielle is agreeable to help pt. A list of SNF providers including quality and resource use data and consistent with the patient?s preferred geographic region, medical needs, and insurance network were provided via the [employer]. Danielle states she will review list and meet with pt tomorrow morning and assist with decision making process. TUCKER will follow up with pt and Danielle tomorrow for continued dc planning. CARLOS Ortega
[2023-09-28] VITALS (7 sets, daily range): BP systolic 96–116; BP diastolic 72–83; PULSE 71–75; RESP 16–18; TEMP 36.6–36.7; O2SAT 92–100
[2023-09-28] MEDS: oxyCODONE 5 MG Tablet PO ×3 (02:34→18:28)
--- NOTE | 2023-09-28 07:07 | PN.HOSP_ITS ---
Reason for Visit Reason for Visit: Diagnoses Constipation, unspecified (09/26/23) Subjective Subjective No new events. Objective Data Objective Data Vital Signs: Vital Signs Temp Pulse Resp BP Pulse Ox O2 Del Method O2 Flow Rate 36.6 C 73 16 97/72 97 Nasal Cannula 2 09/28/23 02:29 09/28/23 02:29 09/28/23 02:29 09/28/23 02:29 09/28/23 02:46 09/28/23 02:46 09/28/23 02:46 Oxygen Flow Rate (L/min) 2 Oxygen Delivery Method Nasal Cannula Weight: 54.1 kg Body Mass Index (BMI) 16.7 Intake & Output: Intake and Output for Last 24 Hours 09/26/23 09/27/23 09/28/23 23:59 23:59 23:59 Intake Total 1200 / 1400 2431.25 / 2631.25 400 / 400 Balance 1200 / 1400 2431.25 / 2631.25 400 / 400 Medical Nutrition Assessment Dietitian: Malnutrition Criteria Met Start: 09/27/23 09:42 Freq: Status: Active Protocol: Document 09/27/23 09:42 LO (Rec: 09/27/23 09:42 LO [id number]) Nutrition Malnutrition Evidence of Malnutrition Exists Yes Malnutrition (severe): Chronic Evidenced By Suboptimal Energy Intake ( Severe),Weight Loss (Severe) Clinical Problem Chronic Disease or Condition Related Malnutrition Etiology severe related to inadequte energy intake with inccreased eneryg needs d/t cancer Signs/Symptoms as evidenced by estimated PO intake meeting <75% of estimated energy needs for >3 months and 14.7lbs (10.9%) weight loss in 3 months and 30 .7lbs (20.4%) Status Active Problem Recommendation Dietitian Recommendations/Changes Continue Regular diet to optimize oral intakes. Continue 120mL EPHP TID with medpass to provide supplemental nutrition. Lab / Micro Data 09/26/23 15:53 09/26/23 15:53 Micro: Microbiology 09/26/23 16:07 Mucosa - Nose SARS-CoV-2, Influenza & RSV (PCR) - Final 09/26/23 15:53 Stool Stool Occult Blood (TIFFANY) - Final Occult Blood Positive Physical Exam Const alert and no apparent distress HEENT head/scalp atraumatic and moist oral mucous membranes Resp normal respiratory effort and no retractions Assessment & Plan Assessment/Plan (1) Constipation: PLAN: Plan Debility * multifactorial, but primarily due to stage IV lung cancer * Patient met with hospice and now wants to be full code. DNR CCA rescinded and patient now full code. * Patient now interested in [facility] facility. Constipation * likely narcotic-induced * on miralax and senna, but no affect. Add MiraLAX. Chronic pain * likely malignancy-induced * on oxycodone (methadone and MSIR at home) Stage IV lung cancer * has not received Keytruda in several weeks. VTE prophylaxis: add enoxaparin Code status changed to full per pt request. Advance care planning: Spent additional 20 minutes discussing CODE STATUS with the patient. Dressed CPR with the patient and with that entails and low likeli laws of survival if he were to undergo cardiac arrest. Also prefaced with the fact that I did have very low suspicion that they will be in an issue while he is here in the hospital. However, I did express to him that feel that his chances of survival would be low and if he were to survive that he would be on life supports and that what ever weakness that he has right now would be drastically reduced if you are survive such an event. I told him that we will leave him a full code but I did encourage him to think about this in the future and discuss it with friends and family in the future. Charges/Coding Visit Charges Inpatient E&M: 39978 Subs Hosp L1 Procedures Hospitalists Procedures: [id number] Advncd Care Plan 30 Min
[2023-09-28] MEDS: Enoxaparin 40 MG/0.4 ML Syringe SC (08:48)
[2023-09-28] MEDS: Senna/Docusate Sodium 1 Tablet 2 TABLET PO ×2 (08:49→22:35)
[2023-09-28] MEDS: Polyethylene Glycol 3350 17 GM PACKET PO ×2 (08:49→22:35)
[2023-09-28] MEDS: oxyCODONE CR 15 MG Tablet PO ×2 (08:49→22:34)
[2023-09-28] MEDS: 0.9% Normal Saline (1000mL) 1,000 ML 75 ML IV (12:07)
--- NOTE | 2023-09-28 13:52 | CASEMGMT ---
Discharge Planning Referral sent to [facility] and [facility] via [employer]. Nakia Mathias, Discharge Planning Asst.
--- NOTE | 2023-09-28 13:58 | CASEMGMT ---
Social Work SW met with pt and his friend Danielle Ng and Feli Kowalski. [place] decision made by pt and friends for SNF placement at 1. [facility] 2. [facility]. DC corporate administrative assistant updated and to send referral. SW assisted pt in completing a living will and HCPOA naming friend Danielle Ng. Original given to pt and copy placed on pt chart. Plan: [facility], pending acceptance and precert CARLOS rOtega
[2023-09-29] VITALS (8 sets, daily range): BP systolic 106–118; BP diastolic 83–97; PULSE 70–90; RESP 16–20; TEMP 36.4–37.3; O2SAT 86–94
[2023-09-29] MEDS: 0.9% Normal Saline (1000mL) 1,000 ML 75 ML IV ×2 (01:39→15:21)
[2023-09-29] MEDS: oxyCODONE 5 MG Tablet PO ×2 (04:57→13:35)
--- NOTE | 2023-09-29 07:20 | PN.HOSP_ITS ---
Reason for Visit Reason for Visit: Diagnoses Constipation, unspecified (09/26/23) Subjective Subjective Feels well. Has had some additional BMs. Denies abdominal pain. Objective Data Objective Data Vital Signs: Vital Signs Temp Pulse Resp BP Pulse Ox O2 Del Method O2 Flow Rate 37.3 C 77 16 118/97 H 93 Nasal Cannula 2 09/29/23 04:48 09/29/23 04:48 09/29/23 04:48 09/29/23 04:48 09/29/23 04:53 09/29/23 04:53 09/29/23 04:53 Oxygen Flow Rate (L/min) 2 Oxygen Delivery Method Nasal Cannula Weight: 54.1 kg Body Mass Index (BMI) 16.7 Intake & Output: Intake and Output for Last 24 Hours 09/27/23 09/28/23 09/29/23 23:59 23:59 23:59 Intake Total 2431.25 / 2631.25 1398.75 / 1498.75 1200 / 1200 Output Total 300 / 300 Balance 2431.25 / 2631.25 1398.75 / 1498.75 900 / 900 Medical Nutrition Assessment Dietitian: Malnutrition Criteria Met Start: 09/27/23 09:42 Freq: Status: Active Protocol: Document 09/27/23 09:42 (Rec: 09/27/23 09:42 [id number]) Nutrition Malnutrition Evidence of Malnutrition Exists Yes Malnutrition (severe): Chronic Evidenced By Suboptimal Energy Intake ( Severe),Weight Loss (Severe) Clinical Problem Chronic Disease or Condition Related Malnutrition Etiology severe related to inadequte energy intake with inccreased eneryg needs d/t cancer Signs/Symptoms as evidenced by estimated PO intake meeting <75% of estimated energy needs for >3 months and 14.7lbs (10.9%) weight loss in 3 months and 30 .7lbs (20.4%) Status Active Problem Recommendation Dietitian Recommendations/Changes Continue Regular diet to optimize oral intakes. Continue 120mL EPHP TID with medpass to provide supplemental nutrition. Lab / Micro Data 09/26/23 15:53 09/26/23 15:53 Micro: Microbiology 09/26/23 15:53 Blood Culture (Wb) - Anticubital Left Blood Culture - Preliminary No growth in 48 hours. 09/26/23 17:00 Blood Culture (Wb) - Anticubital Left Blood Culture - Preliminary No growth in 48 hours. 09/26/23 16:07 Mucosa - Nose SARS-CoV-2, Influenza & RSV (PCR) - Final 09/26/23 15:53 Stool Stool Occult Blood (TIFFANY) - Final Occult Blood Positive Physical Exam Const alert and no apparent distress HEENT head/scalp atraumatic Resp normal respiratory effort and no retractions Neuro Sensorium / Orientation: awake and alert Assessment & Plan Assessment/Plan (1) Constipation: PLAN: Plan Debility * multifactorial, but primarily due to stage IV lung cancer * Patient met with hospice and now wants to be full code. DNR CCA rescinded and patient now full code. * Patient now interested in custodial facility. Constipation * likely narcotic-induced * on miralax and senna, but no affect. Add MiraLAX. Chronic pain * likely malignancy-induced * on oxycodone (methadone and MSIR at home) Stage IV lung cancer * has not received Keytruda in several weeks. VTE prophylaxis: add enoxaparin Code status changed to full per pt request. 09/27: Advance care planning: Spent additional 20 minutes discussing CODE STATUS with the patient. Dressed CPR with the patient and with that entails and low likelihood of survival if he were to undergo cardiac arrest. Also prefaced with the fact that I did have very low suspicion that they will be in an issue while he is here in the hospital. However, I did express to him that feel that his chances of survival would be low and if he were to survive that he would be on life supports and that what ever weakness that he has right now would be drastically reduced if you are survive such an event. I told him that we will l eave him a full code but I did encourage him to think about this in the future and discuss it with friends and family in the future. Charges/Coding Visit Charges Inpatient E&M: 99425 Subs Hosp L1
[2023-09-29] MEDS: Polyethylene Glycol 3350 17 GM PACKET PO ×2 (09:52→21:35)
[2023-09-29] MEDS: oxyCODONE CR 15 MG Tablet PO ×2 (09:52→21:35)
[2023-09-29] MEDS: Senna/Docusate Sodium 1 Tablet 2 TABLET PO ×2 (09:52→21:35)
[2023-09-29] MEDS: Albuterol 2.5 MG/3 ML VIAL.NEB. INHALATION (13:46)
[2023-09-30] VITALS (9 sets, daily range): BP systolic 102–117; BP diastolic 74–92; PULSE 70–83; RESP 18–22; TEMP 36.7–36.9; O2SAT 78–96
[2023-09-30] MEDS: oxyCODONE 5 MG Tablet PO ×3 (00:53→14:15)
[2023-09-30] MEDS: 0.9% Normal Saline (1000mL) 1,000 ML 75 ML IV (04:28)
[2023-09-30 06:18] LABS: Bacteria 0 SEEN /hpf (None Seen); Mucous, Urine 0 SEEN /hpf (<or=2+); Red Blood Cells-Urine 0 SEEN /hpf (0-5); Squamous Epithelial Cells - UA 0 SEEN /hpf (0-5); White Blood Cells 0 SEEN /hpf (0-5)
[2023-09-30 06:21] LABS: Color, Urine Yellow (Yellow); Glucose, Dipstick Normal (Normal); Ketone-Dipstick Negative (Negative); Leukocyte Esterase-Dipstick Negative /ul (Negative); Nitrite-Dipstick Negative (Negative); Occult Blood-Urine Negative /ul (Negative); Protein-Dipstick Negative (Negative); Urine Bilirubin Dipstick Negative (Negative); Urine Clarity Clear (Clear); Urine Urobilinogen Normal (Normal)
--- NOTE | 2023-09-30 07:40 | PN.HOSP_ITS ---
Reason for Visit Reason for Visit: Diagnoses Constipation, unspecified (09/26/23) Subjective Subjective Feels well. No additional BM since the initial one. Objective Data Objective Data Vital Signs: Vital Signs Temp Pulse Resp BP Pulse Ox O2 Del Method O2 Flow Rate 36.7 C 70 20 H 109/82 H 95 Nasal Cannula 3 09/30/23 04:28 09/30/23 07:36 09/30/23 04:28 09/30/23 04:28 09/30/23 04:28 09/30/23 07:36 09/30/23 07:36 Oxygen Flow Rate (L/min) 3 Oxygen Delivery Method Nasal Cannula Weight: 54.1 kg Body Mass Index (BMI) 16.7 Intake & Output: Intake and Output for Last 24 Hours 09/28/23 09/29/23 09/30/23 23:59 23:59 23:59 Intake Total 1398.75 / 1498.75 2200 / 2200 983.75 / 983.75 Output Total 895 / 895 250 / 250 Balance 1398.75 / 1498.75 1305 / 1305 733.75 / 733.75 Medical Nutrition Assessment Dietitian: Malnutrition Criteria Met Start: 09/27/23 09:42 Freq: Status: Active Protocol: Document 09/27/23 09:42 SANTIAGO (Rec: 09/27/23 09:42 [id number]) Nutrition Malnutrition Evidence of Malnutrition Exists Yes Malnutrition (severe): Chronic Evidenced By Suboptimal Energy Intake ( Severe),Weight Loss (Severe) Clinical Problem Chronic Disease or Condition Related Malnutrition Etiology severe related to inadequte energy intake with inccreased eneryg needs d/t cancer Signs/Symptoms as evidenced by estimated PO intake meeting <75% of estimated energy needs for >3 months and 14.7lbs (10.9%) weight loss in 3 months and 30 .7lbs (20.4%) Status Active Problem Recommendation Dietitian Recommendations/Changes Continue Regular diet to optimize oral intakes. Continue 120mL EPHP TID with medpass to provide supplemental nutrition. Lab / Micro Data 09/26/23 15:53 09/26/23 15:53 Labs: Laboratory Results - last 24 hr 09/30/23 06:00: Urine Color Yellow, Urine Clarity Clear, Urine pH 7.0, Ur Specific Dix 1.010, Urine Protein Negative, Urine Glucose (UA) Normal, Urine Ketones Negative, Urine Occult Blood Negative, Urine Nitrite Negative, Urine Bilirubin Negative, Urine Urobilinogen Normal, Ur Leukocyte Esterase Negative, Urine RBC 0 SEEN, Urine WBC 0 SEEN, Ur Squamous Epith Cells 0 SEEN, Urine Bacteria 0 SEEN, Urine Mucus 0 SEEN Micro: Microbiology 09/26/23 15:53 Blood Culture (Wb) - Anticubital Left Blood Culture - Preliminary No growth in 48 hours. 09/26/23 17:00 Blood Culture (Wb) - Anticubital Left Blood Culture - Preliminary No growth in 48 hours. 09/26/23 16:07 Mucosa - Nose SARS-CoV-2, Influenza & RSV (PCR) - Final 09/26/23 15:53 Stool Stool Occult Blood (TIFFANY) - Final Occult Blood Positive Physical Exam Const alert and no apparent distress HEENT head/scalp atraumatic and moist oral mucous membranes Resp normal respiratory effort and no retractions Neuro moves all extremities Sensorium / Orientation: awake and alert Assessment & Plan Assessment/Plan (1) Constipation: PLAN: Plan Debility * multifactorial, but primarily due to stage IV lung cancer * Patient met with hospice and now wants to be full code. DNR CCA rescinded and patient now full code. * Patient now interested in senior living facility. Constipation * likely narcotic-induced * on miralax and senna, but no affect. * will give another dose of mag citrate. Chronic pain * likely malignancy-induced * on oxycodone (methadone and MSIR at home) Stage IV lung cancer * has not received Keytruda in several weeks. VTE prophylaxis: add enoxaparin Code status changed to full per pt request. 09/27: Advance care planning: Spent additional 20 minutes discussing CODE STATUS with the patient. Dressed CPR with the patient and with that entails and low likelihood of survival if he were to undergo cardiac arrest. Also prefaced with the fact that I did have very low suspicion that they will be in an issue while he is here in the hospital. However, I did express to him that feel that his chances of survival would be low and if he were to survive that he would be on life supports and that what ever weakness that he has right now would be drastically reduced if you are survive such an event. I told him that we will leave him a full code but I did encourage him to think about this in the future and discuss it with friends and family in the future. Charges/Coding Visit Charges Inpatient E&M: 85535 Subs Hosp L1
[2023-09-30] MEDS: Senna/Docusate Sodium 1 Tablet 2 TABLET PO ×2 (07:44→21:05)
[2023-09-30] MEDS: oxyCODONE CR 15 MG Tablet PO ×2 (09:32→21:05)
[2023-09-30] MEDS: 0.9% Saline Lock 10 ML Syringe IV (09:32)
[2023-09-30] MEDS: Polyethylene Glycol 3350 17 GM PACKET PO ×2 (09:33→21:05)
[2023-09-30] MEDS: Magnesium Citrate 300 ML PO (11:08)
[2023-10-01] VITALS (9 sets, daily range): BP systolic 99–110; BP diastolic 78–87; PULSE 77–80; RESP 18–20; TEMP 36.3–36.8; O2SAT 83–96
[2023-10-01] MEDS: oxyCODONE 5 MG Tablet PO ×2 (04:05→14:47)
--- NOTE | 2023-10-01 07:28 | PCM.PN.HOSP ---
Reason for Visit Reason for Visit: Diagnoses Constipation, unspecified (09/26/23) Subjective Subjective Minimal BM yesterday. No new events. Objective Data Objective Data Vital Signs: Vital Signs Temp Pulse Resp BP Pulse Ox O2 Del Method O2 Flow Rate 36.8 C 79 18 110/87 H 94 Nasal Cannula 2 10/01/23 04:01 10/01/23 04:01 10/01/23 04:01 10/01/23 04:01 10/01/23 04:01 10/01/23 04:01 10/01/23 04:01 Oxygen Flow Rate (L/min) 2 Oxygen Delivery Method Nasal Cannula Weight: 54.1 kg Body Mass Index (BMI) 16.7 Intake & Output: Intake and Output for Last 24 Hours 09/29/23 09/30/23 10/01/23 23:59 23:59 23:59 Intake Total 2200 / 2200 1368.75 / 1368.75 Output Total 895 / 895 600 / 600 Balance 1305 / 1305 768.75 / 768.75 Medical Nutrition Assessment Dietitian: Malnutrition Criteria Met Start: 09/27/23 09:42 Freq: Status: Active Protocol: Document 09/27/23 09:42 LO (Rec: 09/27/23 09:42 LO [id number]) Nutrition Malnutrition Evidence of Malnutrition Exists Yes Malnutrition (severe): Chronic Evidenced By Suboptimal Energy Intake ( Severe),Weight Loss (Severe) Clinical Problem Chronic Disease or Condition Related Malnutrition Etiology severe related to inadequte energy intake with inccreased eneryg needs d/t cancer Signs/Symptoms as evidenced by estimated PO intake meeting <75% of estimated energy needs for >3 months and 14.7lbs (10.9%) weight loss in 3 months and 30 .7lbs (20.4%) Status Active Problem Recommendation Dietitian Recommendations/Changes Continue Regular diet to optimize oral intakes. Continue 120mL EPHP TID with medpass to provide supplemental nutrition. Lab / Micro Data 09/26/23 15:53 09/26/23 15:53 Micro: Microbiology 09/26/23 15:53 Blood Culture (Wb) - Anticubital Left Blood Culture - Preliminary No growth in 48 hours. 09/26/23 17:00 Blood Culture (Wb) - Anticubital Left Blood Culture - Preliminary No growth in 48 hours. 09/26/23 16:07 Mucosa - Nose SARS-CoV-2, Influenza & RSV (PCR) - Final 09/26/23 15:53 Stool Stool Occult Blood (TIFFANY) - Final Occult Blood Positive Physical Exam Const alert and no apparent distress HEENT head/scalp atraumatic and moist oral mucous membranes Resp normal respiratory effort and no retractions Neuro Sensorium / Orientation: awake Assessment & Plan Assessment/Plan (1) Constipation: PLAN: Plan Debility multifactorial, but primarily due to stage IV lung cancer Patient met with hospice and now wants to be full code. DNR CCA rescinded and patient now full code. Patient now interested in halfway facility. Constipation likely narcotic-induced on miralax and senna, but no affect. had 2 dosed of magnesium citrate on dulcolax. Chronic pain likely malignancy-induced on oxycodone (methadone and MSIR at home) Stage IV lung cancer has not received Keytruda in several weeks. VTE prophylaxis: add enoxaparin Code status changed to full per pt request. 09/27: Advance care planning: Spent additional 20 minutes discussing CODE STATUS with the patient. Dressed CPR with the patient and with that entails and low likelihood of survival if he were to undergo cardiac arrest. Also prefaced with the fact that I did have very low suspicion that they will be in an issue while he is here in the hospital. However, I did express to him that feel that his chances of survival would be low and if he were to survive that he would be on life supports and that what ever weakness that he has right now would be drastically reduced if you are survive such an event. I told him that we will leave him a full code but I did encourage him to think about this in the future and discuss it with friends and family in the future. Charges/Coding Visit Charges Inpatient E&M: 21948 Subs Hosp L2
--- NOTE | 2023-10-01 08:50 | CASEMGMT ---
Discharge Planning Updates sent to [facility] via [facility]. Nakia Mathias, Discharge Planning Asst.
[2023-10-01] MEDS: oxyCODONE CR 15 MG Tablet PO ×2 (10:35→21:09)
[2023-10-01] MEDS: Polyethylene Glycol 3350 17 GM PACKET PO ×2 (10:36→21:09)
[2023-10-01] MEDS: Senna/Docusate Sodium 1 Tablet 2 TABLET PO ×2 (10:36→21:09)
[2023-10-02 04:04] VITALS: BP 110/78; PULSE 80; RESP 18; TEMP 36.6; O2SAT 94
[2023-10-02] MEDS: oxyCODONE 5 MG Tablet PO (04:08)
--- NOTE | 2023-10-02 07:24 | PN.HOSP_ITS ---
Reason for Visit Reason for Visit: Diagnoses Constipation, unspecified (09/26/23) Subjective Subjective Still with constipation. Abdominal pain with constipation. Objective Data Objective Data Vital Signs: Vital Signs Temp Pulse Resp BP Pulse Ox O2 Del Method O2 Flow Rate 36.6 C 80 18 110/78 94 Nasal Cannula 2 10/02/23 04:04 10/02/23 04:04 10/02/23 04:04 10/02/23 04:04 10/02/23 04:04 10/02/23 04:04 10/02/23 04:04 Oxygen Flow Rate (L/min) 2 Oxygen Delivery Method Nasal Cannula Weight: 54.1 kg Body Mass Index (BMI) 16.7 Intake & Output: Intake and Output for Last 24 Hours 09/30/23 10/01/23 10/02/23 23:59 23:59 23:59 Intake Total 1368.75 / 1368.75 1050 / 1050 Output Total 600 / 600 800 / 800 200 / 200 Balance 768.75 / 768.75 250 / 250 -200 / -200 Medical Nutrition Assessment Dietitian: Malnutrition Criteria Met Start: 09/27/23 09:42 Freq: Status: Active Protocol: Document 09/27/23 09:42 LO (Rec: 09/27/23 09:42 LO [id number]) Nutrition Malnutrition Evidence of Malnutrition Exists Yes Malnutrition (severe): Chronic Evidenced By Suboptimal Energy Intake ( Severe),Weight Loss (Severe) Clinical Problem Chronic Disease or Condition Related Malnutrition Etiology severe related to inadequte energy intake with inccreased eneryg needs d/t cancer Signs/Symptoms as evidenced by estimated PO intake meeting <75% of estimated energy needs for >3 months and 14.7lbs (10.9%) weight loss in 3 months and 30 .7lbs (20.4%) Status Active Problem Recommendation Dietitian Recommendations/Changes Continue Regular diet to optimize oral intakes. Continue 120mL EPHP TID with medpass to provide supplemental nutrition. Lab / Micro Data 09/26/23 15:53 09/26/23 15:53 Micro: Microbiology 09/26/23 15:53 Blood Culture (Wb) - Anticubital Left Blood Culture - Preliminary No growth in 48 hours. 09/26/23 17:00 Blood Culture (Wb) - Anticubital Left Blood Culture - Preliminary No growth in 48 hours. 09/26/23 16:07 Mucosa - Nose SARS-CoV-2, Influenza & RSV (PCR) - Final 09/26/23 15:53 Stool Stool Occult Blood (TIFFANY) - Final Occult Blood Positive Physical Exam Const alert and no apparent distress HEENT head/scalp atraumatic and moist oral mucous membranes Resp normal respiratory effort, no retractions, no use of accessory muscles and clear to auscultation bilaterally Cardio regular rate, regular rhythm, S1 normal heart sound and S2 normal heart sound GI normal to inspection, nondistended, normoactive bowel sounds, soft to palpation and non-tender Extremity normal to inspection Neuro Sensorium / Orientation: awake Assessment & Plan Assessment/Plan (1) Constipation: PLAN: Plan Debility * multifactorial, but primarily due to stage IV lung cancer * Patient met with hospice and now wants to be full code. DNR CCA rescinded and patient now full code. * Patient now interested in retirement facility. Constipation * likely narcotic-induced * on miralax and senna, but no affect. * had 2 dosed of magnesium citrate * on dulcolax. Chronic pain * likely malignancy-induced * on oxycodone (methadone and MSIR at home) Stage IV lung cancer * has not received Keytruda in several weeks. VTE prophylaxis: add enoxaparin Code status changed to full per pt request. 09/27: Advance care planning: Spent additional 20 minutes discussing CODE STATUS with the patient. Dressed CPR with the patient and with that entails and low likelihood of survival if he were to undergo cardiac arrest. Also prefaced with the fact that I did have very low suspicion that they will be in an issue while he is here in the hospital. However, I did express to him that feel that his chances of survival would be low and if he were to survive that he would be on life supports and that what ever weakness that he has right now would be drastically reduced if you are survive such an event. I told him that we will leave him a full code but I did encourage him to think about this in the future and discuss it with friends and family in the future. Charges/Coding Visit Charges Inpatient E&M: 98945 Subs Hosp L1
[2023-10-02 08:20] VITALS: BP 101/83; PULSE 78; RESP 18; TEMP 36.7; O2SAT 92
[2023-10-02 08:25] VITALS: O2SAT 93
[2023-10-02] MEDS: Polyethylene Glycol 3350 17 GM PACKET PO ×2 (08:27→20:46)
[2023-10-02] MEDS: oxyCODONE CR 15 MG Tablet PO (08:27)
[2023-10-02] MEDS: Senna/Docusate Sodium 1 Tablet 2 TABLET PO ×2 (08:27→20:46)
--- NOTE | 2023-10-02 09:43 | TREXTCAR_ITS ---
Diet Diet Order/Speech Therapy: 09/26/23 20:37 Diet: Regular - General Food consistency:: Regular Liquid Consistency:: Regular/Thin Routine Orders/Code Status Enema Type: Fleetz Enema Frequency: Daily PRN O2 Liters per Minute: 3 O2 Frequency: Continuous Keep PO Greater than or Equal to (%): 90 Code Status: Full Code Therapies Weight Bearing: Full weight bearing Physical Therapy: Eval and Treat Occupational Therapy: Eval and Treat Problem/Diagnosis (1) Constipation: Status: Acute Code(s): K59.00 - Constipation, unspecified Plan Debility * multifactorial, but primarily due to stage IV lung cancer * Patient met with hospice and now wants to be full code. DNR CCA rescinded and patient now full code. * Patient now interested in retirement facility. Constipation * likely narcotic-induced * on miralax and senna, but no affect. * had 2 dosed of magnesium citrate * on dulcolax. Chronic pain * likely malignancy-induced * on oxycodone (methadone and MSIR at home) Stage IV lung cancer * has not received Keytruda in several weeks. VTE prophylaxis: add enoxaparin Code status changed to full per pt request. 09/27: Advance care planning: Spent additional 20 minutes discussing CODE STATUS with the patient. Dressed CPR with the patient and with that entails and low likelihood of survival if he were to undergo cardiac arrest. Also prefaced with the fact that I did have very low suspicion that they will be in an issue while he is here in the hospital. However, I did express to him that feel that his chances of survival would be low and if he were to survive that he would be on life supports and that what ever weakness that he has right now would be drastically reduced if you are survive such an event. I told him that we will leave him a full code but I did encourage him to think about this in the future and discuss it with friends and family in the future. Allergies/Procedures Done in Hospital Allergies No Known Allergies Allergy (Verified 06/23/23 12:51) Procedures: None Type of Care/Length of Stay Estimated LOS: Convalescent Care Less Than 30 days Type of Care Needed: Skilled Rehab Potential: Fair Prognosis: Fair Additional Orders/Day of Discharge Day of Discharge: 10/02/23 Dietary and Speech Recommendations Dietitian Recommendations/Changes: Continue Regular diet to optimize oral intakes. Discontinue 120mL EPHP TID with medpass d/t pt consistently refusing ONS Rec consider appetite stimulant to help encourage increased po intake Discharge Plan Admission Admit Date/Time: 09/26/23 19:24 Primary Reason for Your Visit: debility Attending Provider: Michael Rodas Primary Care Provider: Care Physician,No Primary Consulting Providers: Isacc Barrientos Discharge Orders/Prescriptions Prescriptions: New sennosides-docusate sodium [Stool Softener-Stimulant Laxat] 8.6-50 mg Tablet 2 tab PO BID Qty: 0 0RF polyethylene glycol 3350 [ClearLax] 17 gram/dose powder 17 g PO BID Qty: 119 0RF Rx Instructions: hold for loose stools bisacodyl [Laxative (bisacodyl)] 5 mg tablet,delayed release (DR/EC) 10 mg PO DAILY PRN (Reason: constipation) Qty: 20 0RF Continued albuterol sulfate [ProAir HFA] 90 mcg/actuation HFA aerosol inhaler 2 inh inhalation Q4H PRN (Reason: shortness of breath or wheezing) morphine 15 mg tablet 15 mg PO Q4H PRN (Reason: pain (scale score 4-6)) 3 Days Qty: 18 0RF Discontinued methadone 10 mg tablet 10 mg PO BID Referrals / Follow Up: Care Physician,No Primary [Primary Care Provider] - Disposition Disposition (needs filled in before D/C Order can be placed): [facility]
[2023-10-02 11:25] VITALS: O2SAT 91
[2023-10-02 14:01] VITALS: BP 99/74; PULSE 84; RESP 18; TEMP 36.7; O2SAT 98
[2023-10-02 20:43] VITALS: BP 111/81; PULSE 83; RESP 18; TEMP 36.6; O2SAT 95
[2023-10-03 04:57] VITALS: BP 90/60; PULSE 81; RESP 18; TEMP 36.7; O2SAT 95
--- NOTE | 2023-10-03 07:25 | PN.HOSP_ITS ---
Reason for Visit Reason for Visit: Diagnoses Malignant neoplasm of unspecified part of unspecified bronchus or lung ( 4) Constipation, unspecified (09/26/23) Subjective Subjective Had some BM. Objective Data Objective Data Vital Signs: Vital Signs Temp Pulse Resp BP Pulse Ox O2 Del Method O2 Flow Rate 36.7 C 81 18 90/60 95 Nasal Cannula 2 10/03/23 04:57 10/03/23 04:57 10/03/23 04:57 10/03/23 04:57 10/03/23 04:57 10/03/23 05:00 10/03/23 05:00 Oxygen Flow Rate (L/min) 2 Oxygen Delivery Method Nasal Cannula Weight: 54.1 kg Body Mass Index (BMI) 16.7 Intake & Output: Intake and Output for Last 24 Hours 10/01/23 10/02/23 10/03/23 23:59 23:59 23:59 Intake Total 1050 / 1050 400 / 400 Output Total 800 / 800 350 / 350 200 / 200 Balance 250 / 250 50 / 50 -200 / -200 Medical Nutrition Assessment Dietitian: Malnutrition Criteria Met Start: 09/27/23 09:42 Freq: Status: Active Protocol: Document 09/27/23 09:42 LO (Rec: 09/27/23 09:42 LO [id number]) Nutrition Malnutrition Evidence of Malnutrition Exists Yes Malnutrition (severe): Chronic Evidenced By Suboptimal Energy Intake ( Severe),Weight Loss (Severe) Clinical Problem Chronic Disease or Condition Related Malnutrition Etiology severe related to inadequte energy intake with inccreased eneryg needs d/t cancer Signs/Symptoms as evidenced by estimated PO intake meeting <75% of estimated energy needs for >3 months and 14.7lbs (10.9%) weight loss in 3 months and 30 .7lbs (20.4%) Status Active Problem Recommendation Dietitian Recommendations/Changes Continue Regular diet to optimize oral intakes. Continue 120mL EPHP TID with medpass to provide supplemental nutrition. Lab / Micro Data 09/26/23 15:53 09/26/23 15:53 Micro: Microbiology 09/26/23 15:53 Blood Culture (Wb) - Anticubital Left Blood Culture - Final No growth in 5 days. 09/26/23 17:00 Blood Culture (Wb) - Anticubital Left Blood Culture - Final No growth in 5 days. 09/26/23 16:07 Mucosa - Nose SARS-CoV-2, Influenza & RSV (PCR) - Final 09/26/23 15:53 Stool Stool Occult Blood (TIFFANY) - Final Occult Blood Positive Physical Exam Const alert and no apparent distress Resp normal respiratory effort, no retractions, no use of accessory muscles and clear to auscultation bilaterally Cardio regular rate, regular rhythm, S1 normal heart sound and S2 normal heart sound GI normal to inspection, nondistended, normoactive bowel sounds, soft to palpation, non-tender and non-distended Assessment & Plan Assessment/Plan (1) Constipation: PLAN: Plan Debility * multifactorial, but primarily due to stage IV lung cancer * Patient met with hospice and now wants to be full code. DNR CCA rescinded and patient now full code. * Patient now interested in [facility] facility. Constipation * likely narcotic-induced * on miralax and senna, but no affect. * had 2 dosed of magnesium citrate * on dulcolax. Chronic pain * likely malignancy-induced * on oxycodone (methadone and MSIR at home) Stage IV lung cancer * has not received Keytruda in several weeks. VTE prophylaxis: add enoxaparin Code status changed to full per pt request. 09/27: Advance care planning: Spent additional 20 minutes discussing CODE STATUS with the patient. Dressed CPR with the patient and with that entails and low likelihood of survival if he were to undergo cardiac arrest. Also prefaced with the fact that I did have very low suspicion that they will be in an issue while he is here in the hospital. However, I did express to him that feel that his chances of survival would be low and if he were to survive that he would be on life supports and that what ever weakness that he has right now would be drastically reduced if you are survive such an event. I told him that we will leave him a full code but I did encourage him to think about this in the future and discuss it with friends and family in the future. Charges/Coding Visit Charges Inpatient E&M: 24360 Subs Hosp L2
[2023-10-03 07:45] VITALS: O2SAT 91
[2023-10-03 07:56] VITALS: BP 93/67; PULSE 80; RESP 14; TEMP 36.8; O2SAT 97
[2023-10-03] MEDS: Senna/Docusate Sodium 1 Tablet 2 TABLET PO ×2 (09:05→20:45)
[2023-10-03 09:06] VITALS: O2SAT 96
[2023-10-03] MEDS: Polyethylene Glycol 3350 17 GM PACKET PO ×2 (09:06→20:46)
--- NOTE | 2023-10-03 09:32 | CASEMGMT ---
Social Work Precert is still pending with insurance for admission to [facility]. SW met with pt and updated on situation. Pt is understanding. Plan: [facility], when percert is obtained CRALOS Ortega
[2023-10-03 13:44] VITALS: BP 100/87; PULSE 87; RESP 14; TEMP 36.6; O2SAT 96
--- NOTE | 2023-10-03 16:26 | NURSING ---
All documentation by nursing education specialist Radha Lerma reviewed by acute care certified nursing assistant Cristina Juarez RN.
[2023-10-03 20:47] VITALS: BP 92/64; PULSE 78; RESP 16; TEMP 36.7; O2SAT 97
[2023-10-04 02:25] VITALS: BP 101/78; PULSE 84; RESP 16; TEMP 36.7; O2SAT 99
--- NOTE | 2023-10-04 07:42 | PN.HOSP_ITS ---
Reason for Visit Reason for Visit: Diagnoses Malignant neoplasm of unspecified part of unspecified bronchus or lung ( 4) Constipation, unspecified (09/26/23) Subjective Subjective Noting stool are liquid now, but not with frequency. Objective Data Objective Data Vital Signs: Vital Signs Temp Pulse Resp BP Pulse Ox O2 Del Method O2 Flow Rate 36.7 C 84 16 101/78 99 Nasal Cannula 3 10/04/23 02:25 10/04/23 02:25 10/04/23 02:25 10/04/23 02:25 10/04/23 02:25 10/04/23 02:28 10/04/23 02:28 Oxygen Flow Rate (L/min) 3 Oxygen Delivery Method Nasal Cannula Weight: 54.1 kg Body Mass Index (BMI) 16.7 Intake & Output: Intake and Output for Last 24 Hours 10/02/23 10/03/23 10/04/23 23:59 23:59 23:59 Intake Total 400 / 400 480 / 480 Output Total 350 / 350 200 / 200 Balance 50 / 50 -200 / 40 480 / 480 Medical Nutrition Assessment Dietitian: Malnutrition Criteria Met Start: 09/27/23 09:42 Freq: Status: Active Protocol: Document 09/27/23 09:42 LO (Rec: 09/27/23 09:42 LO [id number]) Nutrition Malnutrition Evidence of Malnutrition Exists Yes Malnutrition (severe): Chronic Evidenced By Suboptimal Energy Intake ( Severe),Weight Loss (Severe) Clinical Problem Chronic Disease or Condition Related Malnutrition Etiology severe related to inadequte energy intake with inccreased eneryg needs d/t cancer Signs/Symptoms as evidenced by estimated PO intake meeting <75% of estimated energy needs for >3 months and 14.7lbs (10.9%) weight loss in 3 months and 30 .7lbs (20.4%) Status Active Problem Recommendation Dietitian Recommendations/Changes Continue Regular diet to optimize oral intakes. Continue 120mL EPHP TID with medpass to provide supplemental nutrition. Lab / Micro Data 09/26/23 15:53 09/26/23 15:53 Micro: Microbiology 09/26/23 15:53 Blood Culture (Wb) - Anticubital Left Blood Culture - Final No growth in 5 days. 09/26/23 17:00 Blood Culture (Wb) - Anticubital Left Blood Culture - Final No growth in 5 days. 09/26/23 16:07 Mucosa - Nose SARS-CoV-2, Influenza & RSV (PCR) - Final 09/26/23 15:53 Stool Stool Occult Blood (TIFFANY) - Final Occult Blood Positive Physical Exam Const alert and no apparent distress Constitutional Narrative: non-toxic. Extremity normal to inspection Assessment & Plan Assessment/Plan (1) Constipation: PLAN: Plan Debility * multifactorial, but primarily due to stage IV lung cancer * Patient met with hospice and now wants to be full code. DNR CCA rescinded and patient now full code. * Patient now interested in [facility] facility. Constipation * resolved likely narcotic-induced * on miralax and senna, but no affect. * had 2 dosed of magnesium citrate * on dulcolax. Chronic pain * likely malignancy-induced * on MSIR Stage IV lung cancer * has not received Keytruda in several weeks. VTE prophylaxis: add enoxaparin Code status changed to full per pt request. Disposition: to SNF pending insurance authorization. Pt has been medically stable since the . 09/27: Advance care planning: Spent additional 20 minutes discussing CODE STATUS with the patient. Dressed CPR with the patient and with that entails and low likelihood of survival if he were to undergo cardiac arrest. Also prefaced with the fact that I did have very low suspicion that they will be in an issue while he is here in the hospital. However, I did express to him that feel that his chances of survival would be low and if he were to survive that he would be on life supports and that what ever weakness that he has right now would be drastically reduced if you are survive such an event. I told him that we will leave him a full code but I did encourage him to think about this in the future and discuss it with friends and family in the future. Charges/Coding Visit Charges Inpatient E&M: 64405 Subs Hosp L1
[2023-10-04 08:08] VITALS: BP 103/76; PULSE 81; RESP 18; TEMP 36.6; O2SAT 97
[2023-10-04] MEDS: Senna/Docusate Sodium 1 Tablet 2 TABLET PO (08:15)
[2023-10-04 12:40] VITALS: O2SAT 92
--- NOTE | 2023-10-04 12:42 | DS.PCM_ITS ---
Providers Date of Admission: 09/26/23 Primary Care Physician: No Primary Care Phys Reason For Visit: CONSTIPATION AND HOSPICE EVAL Diagnosis Discharge Diagnosis (1) Constipation: Status: Acute Code(s): K59.00 - Constipation, unspecified Plan Debility * multifactorial, but primarily due to stage IV lung cancer * Patient met with hospice and now wants to be full code. DNR CCA rescinded and patient now full code. * Patient now interested in long term facility. Constipation * resolved likely narcotic-induced * on miralax and senna, but no affect. * had 2 dosed of magnesium citrate * on dulcolax. Chronic pain * likely malignancy-induced * on MSIR Stage IV lung cancer * has not received Keytruda in several weeks. VTE prophylaxis: add enoxaparin Code status changed to full per pt request. Disposition: to SNF pending insurance authorization. Pt has been medically stable since the . 09/27: Advance care planning: Spent additional 20 minutes discussing CODE STATUS with the patient. Dressed CPR with the patient and with that entails and low likelihood of survival if he were to undergo cardiac arrest. Also prefaced with the fact that I did have very low suspicion that they will be in an issue while he is here in the hospital. However, I did express to him that feel that his chances of survival would be low and if he were to survive that he would be on life supports and that what ever weakness that he has right now would be drastically reduced if you are survive such an event. I told him that we will leave him a full code but I did encourage him to think about this in the future and discuss it with friends and family in the future. Medications at Discharge Home Medications albuterol sulfate 90 mcg/actuation aerosol inhaler (ProAir HFA) 2 inh inhalation Q4H PRN shortness of breath or wheezing 06/23/23 bisacodyl 5 mg tablet,delayed release (Laxative (bisacodyl)) 10 mg (2 x 5 mg) PO DAILY PRN constipation #20 tabs 10/02/23 morphine 15 mg immediate release tablet 15 mg PO Q4H PRN pain (scale score 4-6) 3 days #18 tabs 10/02/23 polyethylene glycol 3350 17 gram/dose oral powder (ClearLax) 17 g PO BID #119 grams 10/02/23 sennosides 8.6 mg-docusate sodium 50 mg tablet (Stool Softener-Stimulant Laxative) 2 tab PO BID #0 tabs 10/02/23 Hospital Course Operations None Procedures None Summary of Care Provided Hospital Course: Patient came in with weakness and constipation. Given his stage IV lung cancer, the admitting hospitalist discussed with the patient about hospice which patient was initially agreeable. Patient had never been enrolled with hospice but when he found met with hospice he was not interested and requested being full code. As we worked on his bowels with MiraLAX, senna and MiraLAX. Patient started having bowel movements. Patient has chronic pain which she has been on [facility] IR for some time. Patient be discharged to long term facility in stable condition. Medical Records Data Medical Nutrition Assessment Dietitian: Malnutrition Criteria Met Start: 09/27/23 09:4 2 Freq: Status: Active Protocol: Document 09/27/23 09:42 LO (Rec: 09/27/23 09:42 [id number]) Nutrition Malnutrition Evidence of Malnutrition Exists Yes Malnutrition (severe): Chronic Evidenced By Suboptimal Energy Intake ( Severe),Weight Loss (Severe) Clinical Problem Chronic Disease or Condition Related Malnutrition Etiology severe related to inadequte energy intake with inccreased eneryg needs d/t cancer Signs/Symptoms as evidenced by estimated PO intake meeting <75% of estimated energy needs for >3 months and 14.7lbs (10.9%) weight loss in 3 months and 30 .7lbs (20.4%) Status Active Problem Recommendation Dietitian Recommendations/Changes Continue Regular diet to optimize oral intakes. Continue 120mL EPHP TID with medpass to provide supplemental nutrition. Weight / BMI Weight Weight: 54.1 kg Body Mass Index (BMI) 16.7 ABG / Lab / Microbiology Data 09/26/23 15:53 09/26/23 15:53 Microbiology: Microbiology 09/26/23 15:53 Blood Culture (Wb) - Anticubital Left Blood Culture - Final No growth in 5 days. 09/26/23 17:00 Blood Culture (Wb) - Anticubital Left Blood Culture - Final No growth in 5 days. 09/26/23 16:07 Mucosa - Nose SARS-CoV-2, Influenza & RSV (PCR) - Final 09/26/23 15:53 Stool Stool Occult Blood (TIFFANY) - Final Occult Blood Positive Meaningful Use Info Meaningful Use Diagnoses (Choose all that apply): None applicable Discharge Plan Admission Admit Date/Time: 09/26/23 19:24 Primary Reason for Your Visit: debility Attending Provider: Michael Rodas Primary Care Provider: Care Physician,Missy Primary Consulting Providers: Isacc Barrientos Instructions Additional Instructions / Restrictions: Follow-up with your oncologist as per routine. Discharge Orders/Prescriptions Prescriptions: New sennosides-docusate sodium [Stool Softener-Stimulant Laxat] 8.6-50 mg Tablet 2 tab PO BID Qty: 0 0RF polyethylene glycol 3350 [ClearLax] 17 gram/dose powder 17 g PO BID Qty: 119 0RF Rx Instructions: hold for loose stools bisacodyl [Laxative (bisacodyl)] 5 mg tablet,delayed release (DR/EC) 10 mg PO DAILY PRN (Reason: constipation) Qty: 20 0RF Continued albuterol sulfate [ProAir HFA] 90 mcg/actuation HFA aerosol inhaler 2 inh inhalation Q4H PRN (Reason: shortness of breath or wheezing) morphine 15 mg tablet 15 mg PO Q4H PRN (Reason: pain (scale score 4-6)) 3 Days Qty: 18 0RF Discontinued methadone 10 mg tablet 10 mg PO BID Referrals / Follow Up: Care Physician,Missy Primary [Primary Care Provider] - Disposition Disposition (needs filled in before D/C Order can be placed): [facility] Charges/Coding Visit Charges Inpatient E&M: 53710 Disch Hosp
--- NOTE | 2023-10-04 13:12 | CASEMGMT ---
Addendum entered by Yvette Wahl 10/04/23 13:29: Social Work SW did call [facility] to make sure they got the d/c instructions, they did. SW let Azeb in admissions know pt is set up to leave here at 3pm. No further needs anticipated at this time. SWETA Hunter Original Note: Social Work Precert was attained for pt to go to [facility] today. Physician notified, he is discharging pt. SW let pt know precert is attained, he is agreeable to go to [facility] today. SW inquired if he would like SW to call anybody for him, he would like SW to call POA/friend Dnaielle. SW sent all discharge paperwork to [facility] via [facility] as well as faxed the information. SW set up a 3pm wheelchair van w/Physicians. SW let pt, [facility], pt's friend Danielle, and bedside RN know time of pickup. No further needs, pt to [facility] skilled today. SWETA Hunter
[2023-10-04 13:29] VITALS: BP 90/68; PULSE 88; RESP 18; TEMP 36.5; O2SAT 99
--- NOTE | 2023-10-04 14:22 | PHA.DC_ITS ---
Pharmacy [place] Med Reconciliation Pharmacy Service has performed discharge medication reconciliation for this patient upon transfer to [facility] The patient's discharge medication list was reviewed for discrepancies and discrepancies were resolved. Medications at Discharge Home Medications albuterol sulfate 90 mcg/actuation aerosol inhaler (ProAir HFA) 2 inh inhalation Q4H PRN shortness of breath or wheezing 06/23/23 bisacodyl 5 mg tablet,delayed release (Laxative (bisacodyl)) 10 mg (2 x 5 mg) PO DAILY PRN constipation #20 tabs 10/02/23 morphine 15 mg immediate release tablet 15 mg PO Q4H PRN pain (scale score 4-6) 3 days #18 tabs 10/02/23 polyethylene glycol 3350 17 gram/dose oral powder (ClearLax) 17 g PO BID #119 grams 10/02/23 sennosides 8.6 mg-docusate sodium 50 mg tablet (Stool Softener-Stimulant Laxative) 2 tab PO BID #0 tabs 10/02/23
== END 2023-10-04 15:40 | disposition skilled nursing facility (03) ==
LOC: ED 15:36 → MS3 19:48
PROVIDERS: Admitting Provider Family Medicine; Emergency Provider Emergency Medicine
DX: K59.00 Constipation, unspecified (principal); C34.90 Malignant neoplasm of unspecified part of unspecified bronchus or lung; J44.9 Chronic obstructive pulmonary disease, unspecified; G89.29 Other chronic pain; R53.81 Other malaise; D64.9 Anemia, unspecified; R53.1 Weakness; E03.9 Hypothyroidism, unspecified; F17.210 Nicotine dependence, cigarettes, uncomplicated; Z79.899 Other long term (current) drug therapy
CPT/HCPCS: 71045; 74177; 80053; 81001; 82274; 83605; 83690; 84484; 85025; 86850; 86900; 86901; 87040; 87631; 93005; 94640; 96361; 96372; 96374; 96375; 97116; 97162; 97166; 97530; 97535; 99221; 99285; J7030; Q9967; A4216; G0378

== ENCOUNTER → 2023-10-18 | Outpatient (REF) | payer MEDICAID, SELFPAY ==
[2023-10-18 08:00] LABS: Anion Gap 7 (5-15); BUN 7 mg/dL (7-18); Calcium,Total 8.7 mg/dL (8.5-10.1); Chloride 98 mmol/L (98-107); Creatinine, Serum 0.78 mg/dL (0.70-1.30); EST Glomerular Filtration Rate 109 mL/min (>60); Est Glom Filt Rate - Afr Amer 132 mL/min (>60); Glucose 84 mg/dL (74-106); Potassium 3.3 mmol/L (3.5-5.1); Sodium Level 133 mmol/L (136-145)
[2023-10-18 08:08] LABS: Hematocrit 28.6 % (40-54); Hemoglobin 9.4 g/dL (13.0-16.5); Mean Corp Hgb Conc 32.9 g/dL (32-36); Mean Corpuscular Hgb 33.8 pg (27.0-32.0); Mean Corpuscular Volume 102.9 fL (80-94); Mean Platelet Vol. 10.9 fl (6.2-12.0); Platelet Count 215 K/mm3 (150-450); RBC Distribution Width CV 14.9 % (11.6-14.6); RBC Distribution Width SD 56.4 fl (35.1-43.9); Red Blood Count 2.78 M/mm3 (4.6-6.2); White Blood Count 3.9 K/mm3 (4.4-11.0)
== END | disposition home or self-care (01) ==
LOC: OLS.WCC 05:00
PROVIDERS: Visit Provider Family Medicine
DX: D64.9 Anemia, unspecified (principal); Z79.899 Other long term (current) drug therapy
CPT/HCPCS: 36415; 80048; 85027